=== PATIENT | male | born 1985 | race Caucasian/White ===

== ENCOUNTER → 2017-11-16 16:01 | Outpatient (CLI) | payer OTHER, SELFPAY ==
[2017-11-16 17:21] LABS: BUN Creatinine Ratio 16.4 (6-22); Blood Urea Nitrogen 18 mg/dL (9-20); Calcium 10.1 mg/dL (8.4-10.2); Carbon Dioxide 31 mmol/L (22-32); Chloride 99 mmol/L (98-107); Estimated Glomerular Filt Rate > 60.0 mL/min (>60); Glucose 87 mg/dL (70-100); HEMOLYSIS < 15 (0-50); Potassium 4.8 mmol/L (3.4-5.1); Sodium 141 mmol/L (137-145)
== END ==
PROVIDERS: PCP General Practice; Visit Provider Urology
DX: N13.5 Crossing vessel and stricture of ureter without hydronephrosis (principal)
CPT/HCPCS: 36415; 80048

== ENCOUNTER → 2018-09-21 14:25 | Outpatient (CLI) | payer OTHER, SELFPAY ==
--- NOTE | 2018-09-21 | DI.MRI.S_ITS ---
PROCEDURE: MR SHOULDER LT WO CON INDICATIONS: Left shoulder pain. Chronic dislocations TECHNIQUE: Noncontrast oblique coronal T2 fast spin echo with fat saturation, oblique sagittal T1 spin echo and T2 fast spin echo with fat saturation, axial T1 spin echo and T2 fast spin echo with fat saturation through the shoulder. COMPARISON: None. FINDINGS: Image quality: Excellent. Rotator cuff: The supraspinatus, infraspinatus, and subscapularis tendons appear intact throughout. Sagittal images demonstrate no muscle atrophy. Bones and bursae: No bone marrow contusions or fractures. Mild reactive change noted in the subchondral marrow of the humeral head deep to the insertion of the infraspinous tendon. No acromioclavicular joint degeneration. The acromion demonstrates conventional anatomy, without an os acromiale. No pathologic subacromial-subdeltoid or subcoracoid bursal fluid is present. Capsule and soft tissues: In the absence of intra-articular contrast, the labrum and glenohumeral ligaments appear intact. The long head of the biceps tendon demonstrates normal location and morphology. The rotator interval appears normal, without fibrosis. The coracohumeral ligament is normal in thickness. IMPRESSION: No evidence of internal arrangement. Dictated by: Tatyana Caldwell MD, PhD on 09/21/2018 at 22:03 Approved by: Tatyana Caldwell MD, PhD on 09/23/2018 at 9:09
== END ==
DX: M25.512 Pain in left shoulder (principal); M24.412 Recurrent dislocation, left shoulder
CPT/HCPCS: 73221

== ENCOUNTER → 2019-07-23 14:37 | Outpatient (CLI) | payer OTHER, SELFPAY ==
--- NOTE | 2019-07-23 | DI.US.S_ITS ---
PROCEDURE: US ABDOMEN LIMITED INDICATIONS: RIGHT UPPER QUADRANT PAIN TECHNIQUE: Real-time focused scanning was performed of the abdomen, with image documentation. COMPARISON: None. FINDINGS: Limited study requested, the liver appears normal both in size and echotexture. The gallbladder is relatively contracted, and the gallbladder wall is not abnormally thickened when this is taken into account. No biliary distention is seen. No inflammatory free fluid is found. No source of current pain is identified. IMPRESSION: Targeted scanning to the right upper quadrant, source of current pain in this area is not found. Dictated by: Yoni Hahn M.D. on 07/23/2019 at 15:58 Approved by: Yoni Hahn M.D. on 07/23/2019 at 15:59
[2019-07-23 16:58] LABS: Alanine Aminotransferase 26 IU/L (<50); Albumin 4.7 g/dL (3.5-5.0); Albumin Globulin Ratio 1.5 (1.0-2.8); Alkaline Phosphatase 78 U/L (38-126); Aspartate Aminotransferase 32 IU/L (17-59); BUN Creatinine Ratio 14.4 (6-22); Bilirubin Total 0.3 mg/dL (0.2-1.3); Blood Urea Nitrogen 18 mg/dL (9-20); Calcium 9.8 mg/dL (8.4-10.2); Carbon Dioxide 29 mmol/L (22-32); Chloride 104 mmol/L (98-107); Estimated Glomerular Filt Rate > 60.0 mL/min (>60); Globulin 3.1 g/dL (1.7-4.1); Glucose 91 mg/dL (70-100); HEMOLYSIS < 15 (0-50); Potassium 4.2 mmol/L (3.4-5.1); Sodium 140 mmol/L (137-145); Total Protein 7.8 g/dL (6.3-8.2)
== END ==
PROVIDERS: Referring Provider Physician Assistant; Visit Provider Physician Assistant
DX: R10.11 Right upper quadrant pain (principal)
CPT/HCPCS: 36415; 76705; 80053

== ENCOUNTER → 2019-08-04 08:25 | Outpatient (CLI) | payer OTHER, SELFPAY ==
--- NOTE | 2019-08-04 | DI.NM.S_ITS ---
PROCEDURE: NM HIDA WITH CCK PHARMACEUTICAL: 5.5 mCi Tc-99m mebrofenin IV; 1.4 mcg CCK IV. INDICATIONS: Right upper quadrant pain. TECHNIQUE: Following intravenous administration of Tc-99m mebrofenin, sequential anterior abdominal images were obtained. To evaluate the contractile response of the gallbladder in response to Cholecystokinin (CCK), sincalide (0.02 ?g/kg) was administered by slow intravenous infusion approximately 60 minutes after the administration of the radiopharmaceutical. Sequential imaging was continued for 30 minutes after the start of CCK infusion. Gallbladder ejection fraction was calculated. COMPARISON: [facility], ABDOMEN LIMITED, 07/23/2019, 14:56. FINDINGS: Biliary scan: There is normal tracer uptake and excretion by the liver. There is normal visualization of the intrahepatic ducts, common bile duct, and gallbladder. There is normal tracer transit into the duodenum. CCK stimulation: There is normal contractile response of the gallbladder to CCK infusion. The calculated gallbladder ejection fraction is 49%; normal values are above 35%. It has been shown that any patient abdominal pain after CCK administration is related to the rate of CCK injection, rather than to any underlying gallbladder disease (Clinical Nuclear Medicine 2012; 37: 63-70. Journal of Nuclear Medicine 2014; 55: 1-9). IMPRESSION: 1. Normal filling of gallbladder. No evidence for acute cholecystitis. 2. Normal contractile response of gallbladder to CCK stimulation. Dictated by: Shayna Bowman M.D. on 08/04/2019 at 13:00 Approved by: Shayna Bowman M.D. on 08/04/2019 at 13:02
== END ==
PROVIDERS: Referring Provider Physician Assistant; Visit Provider Physician Assistant
DX: R10.11 Right upper quadrant pain (principal)
CPT/HCPCS: 78227; A9537; J2805

== ENCOUNTER → 2019-08-20 13:34 | Outpatient (CLI) | payer OTHER, SELFPAY ==
--- NOTE | 2019-08-20 13:37 | DI.RAD.S_ITS ---
PROCEDURE: XR THORACIC SPINE 3V INDICATIONS: flank pain after nephrectomy TECHNIQUE: 3 views of the thoracic spine were acquired. COMPARISON: [facility], CT, IVP (ABD & PEL WWO CONTRAST), 06/11/2017, 10:46. [facility], CT, KIDNEY/ URETER/BLADDER, 05/27/2017, 14:19. FINDINGS: Bones: No fractures or dislocations. No suspicious bony lesions. 12 pairs of ribs are noted, and appear intact where visualized. Soft tissues: No paravertebral stripe thickening. IMPRESSION: Normal thoracic spine, source of flank pain is not identified. Dictated by: Yoni Hahn M.D. on 08/20/2019 at 15:09 Approved by: Yoni Hahn M.D. on 08/20/2019 at 15:10
== END ==
PROVIDERS: Referring Provider Physical Medicine & Rehabilitation; Visit Provider Physical Medicine & Rehabilitation
DX: R10.9 Unspecified abdominal pain (principal); Z90.5 Acquired absence of kidney
CPT/HCPCS: 72072

== ENCOUNTER → 2019-09-12 07:32 | Outpatient (CLI) | payer OTHER, SELFPAY ==
--- NOTE | 2019-09-12 07:33 | DI.MRI.S_ITS ---
PROCEDURE: MR LUMBAR SPINE WO CON INDICATIONS: Right flank pain TECHNIQUE: Noncontrast sagittal T1 spin echo and T2 fast echo, sagittal STIR, axial T1 and T2 fast spin echo through the lumbar spine. In cases with scoliosis, additional coronal T2 fast spin echo may be performed. COMPARISON: Formerly [facility], CT, IVP (ABD & PEL WWO CONTRAST), 06/11/2017, 10:46. Former[facility], CR, XR LUMBAR SPINE MIN 4V, 09/12/2019, 7:07. FINDINGS: Image quality: Excellent. Alignment and Curvature: There is normal bony alignment. Bone Marrow: Marrow is of normal overall signal. No acute vertebral body compression fractures. Spinal Cord: Conus medullaris terminates at the L1-2 disc level. Visualized cord demonstrates normal signal and size. Paraspinous Soft Tissues: No paravertebral masses. Right kidney is absent or atrophied. L1-L2: Normal appearance. L2-L3: Normal appearance. L3-L4: Normal appearance. L4-L5: Normal appearance. L5-S1: Normal appearance. IMPRESSION: 1. Negative examination. 2. No central stenosis. 3. No neural foraminal narrowing 4. No neural compression. Dictated by: Tatyana Caldwell MD, PhD on 09/12/2019 at 8:50 Approved by: Tatyana Caldwell MD, PhD on 09/12/2019 at 8:54
--- NOTE | 2019-09-12 07:33 | DI.RAD.S_ITS ---
PROCEDURE: XR LUMBAR SPINE MIN 4V INDICATIONS: Right flank pain TECHNIQUE: 5 views of the lumbar spine were acquired. COMPARISON: None. FINDINGS: Bones: 5 nonrib-bearing vertebrae are present. There is normal bony alignment. No vertebral body compression fractures. No suspicious bony lesions. Soft tissues: Overlying bowel gas pattern is normal. No suspicious soft tissue calcifications. Oblique images: No pars defects. IMPRESSION: Unremarkable radiographic examination of lumbar spine. Dictated by: Dc Manzanares M.D. on 09/12/2019 at 8:42 Approved by: Dc Manzanares M.D. on 09/12/2019 at 8:43
== END ==
PROVIDERS: Referring Provider Physical Medicine & Rehabilitation; Visit Provider Physical Medicine & Rehabilitation
DX: R10.9 Unspecified abdominal pain (principal); M54.14 Radiculopathy, thoracic region; M99.08 Segmental and somatic dysfunction of rib cage; Z90.5 Acquired absence of kidney
CPT/HCPCS: 72110; 72148

== ENCOUNTER 2019-10-14 11:15 | Outpatient (RCR) | payer OTHER, SELFPAY ==
--- NOTE | 2019-08-21 18:24 | PT.OIE ---
Current Diagnoses Other chronic pain (08/21/19) Visit Care Team Role Provider Type Trinidad Gutierrez MD Attending Provider Non-Staff Primary Care Provider Referring Provider Specialty: Family Practice Address: [address] [place] [address], [id number] Email: Physical Therapy Initial Evaluation PT-OP-A Visit Information Start: 08/21/19 17:37 Freq: Status: Active Protocol: Document 08/21/19 16:45 HH (Rec: 08/21/19 18:21 HH [email or web address]) Out-Patient Physical Therapy Visit Information Visit Information Visit Type Initial Evaluation Visit Start Time 16:45 Visit Stop Time 15:31 Total Visit Minutes 46 Visit Number 04/21 Number of MEAL ATTENDANT Visits 0 Evaluation Information Evaluation Date 08/21/19 PT-OP-B Current Condition Start: 08/21/19 17:37 Freq: Status: Active Protocol: Document 08/21/19 16:45 HH (Rec: 08/21/19 18:21 HH [email or web address]) Current Condition History of Current Condition Onset Date Many years ago Current Complaints flank pain after nephrectomy History of Current Condition Pt presents to clinic with c/o chronic R lower back pain (R upper quadrant) 3-09/16 after nephrectomy 2 years ago. Pt had R globalized upper quadrant pain since many years ago was treated generalized back for awhile then he was found to have kidney failure and received nephrectomy on June 2017. Pt continue to have persistent pain afterwards which mostly located at the base of 12th rib. He described his pain as deep inside. Stress, prolonged physical activities and bending over seem to worsen his pain but not much. pt saw neurologist and was diagnosed with somatic visceral pain and recommended pt to see Dr. Montiel for pain management by needling treatment and Myofascial treatment from [facility] . Pt states he often wear compression belt and that tends to help. Pt also had a gallbladder scan recently with unremarkable findings. Pt works at the [employer] but he is on limited duty due to his recent L shoulder labral surgery who is seeing [employer] PT at the same time. Pt likes to exercise and run in general. Future Testing and Treatments Planned Needling treatment in 09/02 with Treatment Goals Patient/Caregiver Goals 1. To reduce his overall pain level. Personal Factors Other Personal Factors That May Effect Possible somatic visceral Therapy/Recovery reflex after nephrectomy PT-OP-C Subjective Start: 08/21/19 17:37 Freq: Status: Active Protocol: Document 08/21/19 16:45 HH (Rec: 08/21/19 18:21 [email or web address]) OP-PT Subjective Patient Comments Patient Comments My back pain is very constant Patient Questionnaires Oswestry Low Back Index Oswestry Score 38 Oswestry Impairment 20 to 39% Impaired (Score 20- 39) OP-PT Pain Assessment Location Right Upper Back Pain Location Details base of 12 th rib Intensity 5 Scale Used Numeric (1 - 10) Description Aching,Dull Frequency Constant Pain Aggravating Factors Activity,Exercise,Bending, Lifting Pain Alleviating Factors Cold PT-OP-D Balance Start: 08/21/19 17:37 Freq: Status: Active Protocol: Document 08/21/19 16:45 HH (Rec: 08/21/19 18:21 [email or web address]) Balance Tests Other Other Balance Tests Performed excessive trunk shift during SLS PT-OP-F Manual Assessment Start: 08/21/19 17:37 Freq: Status: Active Protocol: Document 08/21/19 16:45 HH (Rec: 08/21/19 18:21 [email or web address]) Manual Assessments Soft Tissue Assessment Soft Tissue Mobility Assessment Significant tenderness to pressure at R QL, base of 12 th rib, R hip flexor PT-OP-K Range of Motion Start: 08/21/19 17:37 Freq: Status: Active Protocol: Document 08/21/19 16:45 HH (Rec: 08/21/19 18:21 [email or web address]) Lumbar Spine Range of Motion Lumbar Spine Active Percentage Testing Position Standing Flexion 30 Extension 90 Rotation Left 80 Rotation Right 80 Lateral Flexion Left 80 Lateral Flexion Right 80 ROM Limitations Soft Tissue Tightness Comments Toe touch test = finger reach midshin, lack of hip flexion. LBP reproduced Pain reproduced with L lateral flexion and R rotation Hip Goniometric Range of Motion Hip Right Active Hip ROM WFL Yes Knee Goniometric Range of Motion Knee Right Knee ROM WFL Yes Left Knee ROM WFL Yes PT-OP-M Strength Start: 08/21/19 17:37 Freq: Status: Active Protocol: Document 08/21/19 16:45 HH (Rec: 08/21/19 18:21 [email or web address]) Trunk Strength Trunk Manual Muscle Testing Comments biering lisa test = >60s abdominal flexion test (curl position) =14 s Hip Strength Hip Manual Muscle Testing Right Flexion (L2) 5 Normal Extension (S1) 5 Normal Abduction 5 Normal Adduction 5 Normal External Rotation 5 Normal Internal Rotation 5 Normal Left Flexion (L2) 5 Normal Extension (S1) 5 Normal Abduction 5 Normal Adduction 5 Normal External Rotation 5 Normal Internal Rotation 5 Normal Knee Strength Knee Manual Muscle Testing Right Flexion (S2) 5 Normal Extension (L3) 5 Normal Left Flexion (S2) 5 Normal Extension (L3) 5 Normal PT-OP-T Assessment and Plan Start: 08/21/19 17:37 Freq: Status: Active Protocol: Document 08/21/19 16:45 (Rec: 08/21/19 18:21 [email or web address]) Physical Therapy Assessment Rehab Potential Rehabilitation Potential Good Evaluation Complexity Number of Personal Factors/Comorbidities 1-2 Number of Body Systems Impaired 1-2 Clinical Presentation at Evaluation Stable Impairments Impairments Activity Tolerance,Balance, Functional Activities, Functional Mobility,Pain,ROM, Soft Tissue Mobility,Strength Goals Owestry LbP Impairment scores 38 Senior Living Goal (LTG) Pt will be able to reach <20 for Oswestry to improve his overall quality of life LTG Duration 8 weeks pain Impairment chronic pain Short Term Goal (STG) Pt will have no more than 4/10 of right back pain at the end of the day STG Duration 4 weeks Senior Living Goal (LTG) Pt will have no more than 2/10 of right back pain at the end of the day to improve his quality of life LTG Duration 8 weeks toe touch Impairment Pt demonstrates poor posterior chain mobility Short Term Goal (STG) Pt will be able to ankle touch during standing flexion test STG Duration 4 weeks Senior Living Goal (LTG) Pt will be able to floor touch during standing flexion test to improve posterior chain mobility to reduce low back pressure for bend over activities. LTG Duration 8 weeks core stability Impairment pt demonstrates poor core stability Short Term Goal (STG) Pt will reach >25 s for abdominal flexion endurance test , 70 s for biering lisa test STG Duration 4 weeks Call Worker Goal (LTG) Pt will reach >40 s for abdominal flexion endurance test , 90 s for biering lisa to improve his trunk stability for any physical activity LTG Duration 8 weeks Assessment Summary Assessment This is a moderate complexity evaluation for this 34 yo male with chronic back pain d/t kidney failure and nephrectomy (2018). Upon assessment, pt presents somatic visceral reflex pain at R upper quadrant, along with significant tenderness to pressure at the base of R 12th rib, and r hip flexor. Pt also demonstrates significant limited posterior chain mobility who seems to compromise with excessive lumbar flexion for bend over activities. His core stability is also poor whose abdominal flexion test =14 s and Biering lisa = 60s with pain noted. Pt will benefit from skilled therapy to address his hip mobility and trunk stability to reduce excessive mechanical stress on lumbar musculature, in order to have better quality of life. Physical Therapy Plan Frequency and Duration Frequency of Treatment 2x/Week Duration of Treatment 8 weeks Plan of Care Start Date 08/21/19 Plan of Care End Date 10/20/19 Therapeutic Interventions Therapeutic Interventions Balance Training,Gait Training ,Home Exercise Program,Joint Mobilizations,Manual Therapy, Neuromuscular Re-education, Patient/Caregiver Education, Self-Care/Home Management,Soft Tissue Mobilization, Therapeutic Activities, Therapeutic Exercises Modalities Cold Pack/Ice Massage,Infrared Therapy,Ultrasound Next Visit Focus/Plan Next Note Type Treatment Note Next Visit Plan myofascial release on abdominal and trunk extensor musculature hip posterior chain mobility training ( hamstrings) low back stabiltiy and endurance ex (flexion/ extension)
--- NOTE | 2019-08-27 13:25 | PT.OTN ---
Current Diagnoses Other chronic pain (08/27/19) Physical Therapy Treatment Note PT-OP-A Visit Information Start: 08/21/19 17:37 Freq: Status: Active Protocol: Document 08/27/19 13:10 [facility] (Rec: 08/27/19 13:20 [facility] [email or web address]) Out-Patient Physical Therapy Visit Information Visit Information Visit Type Treatment Note Visit Start Time 08:15 Visit Stop Time 09:00 Total Visit Minutes 45 Visit Number 2/13 Number of PREPARED FOODS TEAM LEADER Visits 0 Evaluation Information Evaluation Date 08/21/19 PT-OP-B Current Condition Start: 08/21/19 17:37 Freq: Status: Active Protocol: Document 08/21/19 16:45 HH (Rec: 08/21/19 18:21 HH [email or web address]) Current Condition History of Current Condition Onset Date Many years ago Current Complaints flank pain after nephrectomy History of Current Condition Pt presents to clinic with c/o chronic R lower back pain (R upper quadrant) 3-09/16 after nephrectomy 2 years ago. Pt had R globalized upper quadrant pain since many years ago was treated generalized back for awhile then he was found to have kidney failure and received nephrectomy on June 2017. Pt continue to have persistent pain afterwards which mostly located at the base of 12th rib. He described his pain as deep inside. Stress, prolonged physical activities and bending over seem to worsen his pain but not much. pt saw neurologist and was diagnosed with somatic visceral pain and recommended pt to see Dr. Montiel for pain management by needling treatment and Myofascial treatment from [facility] . Pt states he often wear compression belt and that tends to help. Pt also had a gallbladder scan recently with unremarkable findings. Pt works at the [employer] but he is on limited duty due to his recent L shoulder labral surgery who is seeing [employer] PT at the same time. Pt likes to exercise and run in general. Future Testing and Treatments Planned Needling treatment in 09/02 with Treatment Goals Patient/Caregiver Goals 1. To reduce his overall pain level. Personal Factors Other Personal Factors That May Effect Possible somatic visceral Therapy/Recovery reflex after nephrectomy PT-OP-C Subjective Start: 08/21/19 17:37 Freq: Status: Active Protocol: Document 08/27/19 13:10 [facility] (Rec: 08/27/19 13:20 [facility] [email or web address]) OP-PT Subjective Patient Comments Patient Comments pt reports he has been working on his [employer], his back pain remains constant PT-OP-D Balance Start: 08/21/19 17:37 Freq: Status: Active Protocol: Document 08/21/19 16:45 HH (Rec: 08/21/19 18:21 [email or web address]) Balance Tests Other Other Balance Tests Performed excessive trunk shift during SLS PT-OP-F Manual Assessment Start: 08/21/19 17:37 Freq: Status: Active Protocol: Document 08/21/19 16:45 HH (Rec: 08/21/19 18:21 [email or web address]) Manual Assessments Soft Tissue Assessment Soft Tissue Mobility Assessment Significant tenderness to pressure at R QL, base of 12 th rib, R hip flexor PT-OP-K Range of Motion Start: 08/21/19 17:37 Freq: Status: Active Protocol: Document 08/21/19 16:45 HH (Rec: 08/21/19 18:21 [email or web address]) Lumbar Spine Range of Motion Lumbar Spine Active Percentage Testing Position Standing Flexion 30 Extension 90 Rotation Left 80 Rotation Right 80 Lateral Flexion Left 80 Lateral Flexion Right 80 ROM Limitations Soft Tissue Tightness Comments Toe touch test = finger reach midshin, lack of hip flexion. LBP reproduced Pain reproduced with L lateral flexion and R rotation Hip Goniometric Range of Motion Hip Right Active Hip ROM WFL Yes Knee Goniometric Range of Motion Knee Right Knee ROM WFL Yes Left Knee ROM WFL Yes PT-OP-M Strength Start: 08/21/19 17:37 Freq: Status: Active Protocol: Document 08/21/19 16:45 HH (Rec: 08/21/19 18:21 [email or web address]) Trunk Strength Trunk Manual Muscle Testing Comments van lisa test = >60s abdominal flexion test (curl position) =14 s Hip Strength Hip Manual Muscle Testing Right Flexion (L2) 5 Normal Extension (S1) 5 Normal Abduction 5 Normal Adduction 5 Normal External Rotation 5 Normal Internal Rotation 5 Normal Left Flexion (L2) 5 Normal Extension (S1) 5 Normal Abduction 5 Normal Adduction 5 Normal External Rotation 5 Normal Internal Rotation 5 Normal Knee Strength Knee Manual Muscle Testing Right Flexion (S2) 5 Normal Extension (L3) 5 Normal Left Flexion (S2) 5 Normal Extension (L3) 5 Normal PT-OP-Q Treatments Start: 08/21/19 17:37 Freq: Status: Active Protocol: Document 08/27/19 13:20 [facility] (Rec: 08/27/19 13:25 [facility] [email or web address]) Therapeutic Exercises Supine Exercises 2 Supine Exercise Name supine foam roll stretch Reps/Minutes 1-2 minutes Comments started with 1/2 foam roll 1 Supine Exercise Name diaphragmatic breathing Reps/Minutes x 5 reps Comments with tactile cues to expand the rib cage Manual Therapy Treatment Soft Tissue Mobilization 2 Body Location STM lumbar parapsinals on the right Body Position prone over body pillow 1 Body Location MFR over the right side of the abdominal wall, kidney region on the right Body Position Supine Comments worked on breathing with mfr PT-OP-T Assessment and Plan Start: 08/21/19 17:37 Freq: Status: Active Protocol: Document 08/27/19 13:10 [facility] (Rec: 08/27/19 13:20 [facility] [email or web address]) Physical Therapy Assessment Assessment Summary Assessment pt tolerated MFR well over the abdominal region, riib cage on the right and kidney. I did do some STM over the lumbar paraspinals. We reviewed diaphragmatic breathing today and pt was given a hand out for home on breathing and given info on the breath shellie. I also started him on the foam roll as he tends to arch his low back lifting his rib cage in the supine position. He tolerated the foam roll well. Pt to ice at the end of treatment today Physical Therapy Plan Frequency and Duration Frequency of Treatment 2x/Week Duration of Treatment 8 weeks Plan of Care Start Date 08/21/19 Plan of Care End Date 10/20/19 Therapeutic Interventions Therapeutic Interventions Balance Training,Gait Training ,Home Exercise Program,Joint Mobilizations,Manual Therapy, Neuromuscular Re-education, Patient/Caregiver Education, Self-Care/Home Management,Soft Tissue Mobilization, Therapeutic Activities, Therapeutic Exercises Modalities Cold Pack/Ice Massage,Infrared Therapy,Ultrasound Next Visit Focus/Plan Next Note Type Treatment Note Next Visit Plan myofascial release on abdominal and trunk extensor musculature hip posterior chain mobility training ( hamstrings) low back stabiltiy and endurance ex (flexion/ extension)
--- NOTE | 2019-09-03 17:00 | PT.OTN ---
Current Diagnoses Other chronic pain (09/08/19) Physical Therapy Treatment Note PT-OP-A Visit Information Start: 08/21/19 17:37 Freq: Status: Active Protocol: Document 09/03/19 16:32 [facility] (Rec: 09/03/19 16:33 [facility] [email or web address]) Out-Patient Physical Therapy Visit Information Visit Information Visit Type Treatment Note Visit Start Time 13:45 Visit Stop Time 14:30 Total Visit Minutes 45 Visit Number 3/13 Number of TARIFF SUPERVISOR Visits 0 PT-OP-B Current Condition Start: 08/21/19 17:37 Freq: Status: Active Protocol: Document 08/21/19 16:45 HH (Rec: 08/21/19 18:21 HH [email or web address]) Current Condition History of Current Condition Onset Date Many years ago Current Complaints flank pain after nephrectomy History of Current Condition Pt presents to clinic with c/o chronic R lower back pain (R upper quadrant) 3-09/16 after nephrectomy 2 years ago. Pt had R globalized upper quadrant pain since many years ago was treated generalized back for awhile then he was found to have kidney failure and received nephrectomy on June 2017. Pt continue to have persistent pain afterwards which mostly located at the base of 12th rib. He described his pain as deep inside. Stress, prolonged physical activities and bending over seem to worsen his pain but not much. pt saw neurologist and was diagnosed with somatic visceral pain and recommended pt to see Dr. Montiel for pain management by needling treatment and Myofascial treatment from [facility] . Pt states he often wear compression belt and that tends to help. Pt also had a gallbladder scan recently with unremarkable findings. Pt works at the [employer] but he is on limited duty due to his recent L shoulder labral surgery who is seeing [employer] PT at the same time. Pt likes to exercise and run in general. Future Testing and Treatments Planned Needling treatment in 09/02 with Treatment Goals Patient/Caregiver Goals 1. To reduce his overall pain level. Personal Factors Other Personal Factors That May Effect Possible somatic visceral Therapy/Recovery reflex after nephrectomy PT-OP-C Subjective Start: 08/21/19 17:37 Freq: Status: Active Protocol: Document 09/03/19 16:32 [facility] (Rec: 09/08/19 13:50 [facility] [id number]) OP-PT Subjective Patient Comments Patient Comments pt is takng prednispone and is starting his second dose this week. Taking Lidocaine spray for his back. Patient Reported Progress Same PT-OP-D Balance Start: 08/21/19 17:37 Freq: Status: Active Protocol: Document 08/21/19 16:45 HH (Rec: 08/21/19 18:21 [email or web address]) Balance Tests Other Other Balance Tests Performed excessive trunk shift during SLS PT-OP-F Manual Assessment Start: 08/21/19 17:37 Freq: Status: Active Protocol: Document 08/21/19 16:45 HH (Rec: 08/21/19 18:21 [email or web address]) Manual Assessments Soft Tissue Assessment Soft Tissue Mobility Assessment Significant tenderness to pressure at R QL, base of 12 th rib, R hip flexor PT-OP-K Range of Motion Start: 08/21/19 17:37 Freq: Status: Active Protocol: Document 08/21/19 16:45 HH (Rec: 08/21/19 18:21 [email or web address]) Lumbar Spine Range of Motion Lumbar Spine Active Percentage Testing Position Standing Flexion 30 Extension 90 Rotation Left 80 Rotation Right 80 Lateral Flexion Left 80 Lateral Flexion Right 80 ROM Limitations Soft Tissue Tightness Comments Toe touch test = finger reach midshin, lack of hip flexion. LBP reproduced Pain reproduced with L lateral flexion and R rotation Hip Goniometric Range of Motion Hip Right Active Hip ROM WFL Yes Knee Goniometric Range of Motion Knee Right Knee ROM WFL Yes Left Knee ROM WFL Yes PT-OP-M Strength Start: 08/21/19 17:37 Freq: Status: Active Protocol: Document 08/21/19 16:45 HH (Rec: 08/21/19 18:21 [email or web address]) Trunk Strength Trunk Manual Muscle Testing Comments van lisa test = >60s abdominal flexion test (curl position) =14 s Hip Strength Hip Manual Muscle Testing Right Flexion (L2) 5 Normal Extension (S1) 5 Normal Abduction 5 Normal Adduction 5 Normal External Rotation 5 Normal Internal Rotation 5 Normal Left Flexion (L2) 5 Normal Extension (S1) 5 Normal Abduction 5 Normal Adduction 5 Normal External Rotation 5 Normal Internal Rotation 5 Normal Knee Strength Knee Manual Muscle Testing Right Flexion (S2) 5 Normal Extension (L3) 5 Normal Left Flexion (S2) 5 Normal Extension (L3) 5 Normal PT-OP-Q Treatments Start: 08/21/19 17:37 Freq: Status: Active Protocol: Document 09/03/19 12:51 [facility] (Rec: 09/08/19 12:56 [facility] [email or web address]) Therapeutic Exercises Supine Exercises 2 Supine Exercise Name supine foam roll stretch Reps/Minutes 1-2 minutes Comments started with 1/2 foam roll 1 Supine Exercise Name diaphragmatic breathing Reps/Minutes x 5 reps Comments with tactile cues to expand the rib cage Standing Exercises 1 Standing Exercise Name standing side bend stretching Reps/Minutes 2 reps each side hold 30 seconds plus Other Exercises 1 Other Exercise Name nancy pose Comments hold 1-2 min Manual Therapy Treatment Soft Tissue Mobilization 2 Body Location STM lumbar parapsinals on the right Body Position prone over body pillow 1 Body Location MFR over the right side of the abdominal wall, kidney region on the right Body Position Supine Comments worked on breathing with mfr PT-OP-T Assessment and Plan Start: 08/21/19 17:37 Freq: Status: Active Protocol: Document 09/03/19 12:51 [facility] (Rec: 09/08/19 12:56 [facility] [email or web address]) Physical Therapy Assessment Assessment Summary Assessment I began added in lateral stretches and Shan tolerated this well. Working on diaphragmatic breathing to open up the rib cage and intercostals Physical Therapy Plan Frequency and Duration Frequency of Treatment 2x/Week Duration of Treatment 8 weeks Plan of Care Start Date 08/21/19 Plan of Care End Date 10/20/19 Next Visit Focus/Plan Next Note Type Treatment Note Next Visit Plan myofascial release on abdominal and trunk extensor musculature hip posterior chain mobility training ( hamstrings) low back stabiltiy and endurance ex (flexion/ extension)
--- NOTE | 2019-09-03 17:00 | PT.OTN ---
Current Diagnoses Other chronic pain (09/08/19) Physical Therapy Treatment Note PT-OP-A Visit Information Start: 08/21/19 17:37 Freq: Status: Active Protocol: Document 09/03/19 16:32 [facility] (Rec: 09/03/19 16:33 [facility] [email or web address]) Out-Patient Physical Therapy Visit Information Visit Information Visit Type Treatment Note Visit Start Time 13:45 Visit Stop Time 14:30 Total Visit Minutes 45 Visit Number 3/13 Number of TECHNOLOGY PROJECT MANAGER Visits 0 PT-OP-B Current Condition Start: 08/21/19 17:37 Freq: Status: Active Protocol: Document 08/21/19 16:45 HH (Rec: 08/21/19 18:21 HH [email or web address]) Current Condition History of Current Condition Onset Date Many years ago Current Complaints flank pain after nephrectomy History of Current Condition Pt presents to clinic with c/o chronic R lower back pain (R upper quadrant) 3-09/16 after nephrectomy 2 years ago. Pt had R globalized upper quadrant pain since many years ago was treated generalized back for awhile then he was found to have kidney failure and received nephrectomy on June 2017. Pt continue to have persistent pain afterwards which mostly located at the base of 12th rib. He described his pain as deep inside. Stress, prolonged physical activities and bending over seem to worsen his pain but not much. pt saw neurologist and was diagnosed with somatic visceral pain and recommended pt to see Dr. Montiel for pain management by needling treatment and Myofascial treatment from [facility] . Pt states he often wear compression belt and that tends to help. Pt also had a gallbladder scan recently with unremarkable findings. Pt works at the [employer] but he is on limited duty due to his recent L shoulder labral surgery who is seeing [employer] PT at the same time. Pt likes to exercise and run in general. Future Testing and Treatments Planned Needling treatment in 09/02 with Treatment Goals Patient/Caregiver Goals 1. To reduce his overall pain level. Personal Factors Other Personal Factors That May Effect Possible somatic visceral Therapy/Recovery reflex after nephrectomy PT-OP-C Subjective Start: 08/21/19 17:37 Freq: Status: Active Protocol: Document 09/03/19 16:32 [facility] (Rec: 09/08/19 13:50 [facility] [id number]) OP-PT Subjective Patient Comments Patient Comments pt is takng prednispone and is starting his second dose this week. Taking Lidocaine spray for his back. Patient Reported Progress Same PT-OP-D Balance Start: 08/21/19 17:37 Freq: Status: Active Protocol: Document 08/21/19 16:45 HH (Rec: 08/21/19 18:21 [email or web address]) Balance Tests Other Other Balance Tests Performed excessive trunk shift during SLS PT-OP-F Manual Assessment Start: 08/21/19 17:37 Freq: Status: Active Protocol: Document 08/21/19 16:45 HH (Rec: 08/21/19 18:21 [email or web address]) Manual Assessments Soft Tissue Assessment Soft Tissue Mobility Assessment Significant tenderness to pressure at R QL, base of 12 th rib, R hip flexor PT-OP-K Range of Motion Start: 08/21/19 17:37 Freq: Status: Active Protocol: Document 08/21/19 16:45 HH (Rec: 08/21/19 18:21 [email or web address]) Lumbar Spine Range of Motion Lumbar Spine Active Percentage Testing Position Standing Flexion 30 Extension 90 Rotation Left 80 Rotation Right 80 Lateral Flexion Left 80 Lateral Flexion Right 80 ROM Limitations Soft Tissue Tightness Comments Toe touch test = finger reach midshin, lack of hip flexion. LBP reproduced Pain reproduced with L lateral flexion and R rotation Hip Goniometric Range of Motion Hip Right Active Hip ROM WFL Yes Knee Goniometric Range of Motion Knee Right Knee ROM WFL Yes Left Knee ROM WFL Yes PT-OP-M Strength Start: 08/21/19 17:37 Freq: Status: Active Protocol: Document 08/21/19 16:45 HH (Rec: 08/21/19 18:21 [email or web address]) Trunk Strength Trunk Manual Muscle Testing Comments van lisa test = >60s abdominal flexion test (curl position) =14 s Hip Strength Hip Manual Muscle Testing Right Flexion (L2) 5 Normal Extension (S1) 5 Normal Abduction 5 Normal Adduction 5 Normal External Rotation 5 Normal Internal Rotation 5 Normal Left Flexion (L2) 5 Normal Extension (S1) 5 Normal Abduction 5 Normal Adduction 5 Normal External Rotation 5 Normal Internal Rotation 5 Normal Knee Strength Knee Manual Muscle Testing Right Flexion (S2) 5 Normal Extension (L3) 5 Normal Left Flexion (S2) 5 Normal Extension (L3) 5 Normal PT-OP-Q Treatments Start: 08/21/19 17:37 Freq: Status: Active Protocol: Document 09/03/19 12:51 [facility] (Rec: 09/08/19 12:56 [facility] [email or web address]) Therapeutic Exercises Supine Exercises 2 Supine Exercise Name supine foam roll stretch Reps/Minutes 1-2 minutes Comments started with 1/2 foam roll 1 Supine Exercise Name diaphragmatic breathing Reps/Minutes x 5 reps Comments with tactile cues to expand the rib cage Standing Exercises 1 Standing Exercise Name standing side bend stretching Reps/Minutes 2 reps each side hold 30 seconds plus Other Exercises 1 Other Exercise Name nancy pose Comments hold 1-2 min Manual Therapy Treatment Soft Tissue Mobilization 2 Body Location STM lumbar parapsinals on the right Body Position prone over body pillow 1 Body Location MFR over the right side of the abdominal wall, kidney region on the right Body Position Supine Comments worked on breathing with mfr PT-OP-T Assessment and Plan Start: 08/21/19 17:37 Freq: Status: Active Protocol: Document 09/03/19 12:51 [facility] (Rec: 09/08/19 12:56 [facility] [email or web address]) Physical Therapy Assessment Assessment Summary Assessment I began added in lateral stretches and Shan tolerated this well. Working on diaphragmatic breathing to open up the rib cage and intercostals Physical Therapy Plan Frequency and Duration Frequency of Treatment 2x/Week Duration of Treatment 8 weeks Plan of Care Start Date 08/21/19 Plan of Care End Date 10/20/19 Next Visit Focus/Plan Next Note Type Treatment Note Next Visit Plan myofascial release on abdominal and trunk extensor musculature hip posterior chain mobility training ( hamstrings) low back stabiltiy and endurance ex (flexion/ extension)
--- NOTE | 2019-09-08 12:57 | PT.OTN ---
Current Diagnoses Other chronic pain (09/03/19) Physical Therapy Treatment Note PT-OP-A Visit Information Start: 08/21/19 17:37 Freq: Status: Active Protocol: Document 09/03/19 16:32 [facility] (Rec: 09/03/19 16:33 [facility] [email or web address]) Out-Patient Physical Therapy Visit Information Visit Information Visit Type Treatment Note Visit Start Time 13:45 Visit Stop Time 14:30 Total Visit Minutes 45 Visit Number 3/13 Number of GOLF COURSE SUPERINTENDENT Visits 0 PT-OP-B Current Condition Start: 08/21/19 17:37 Freq: Status: Active Protocol: Document 08/21/19 16:45 HH (Rec: 08/21/19 18:21 HH [email or web address]) Current Condition History of Current Condition Onset Date Many years ago Current Complaints flank pain after nephrectomy History of Current Condition Pt presents to clinic with c/o chronic R lower back pain (R upper quadrant) 3-09/16 after nephrectomy 2 years ago. Pt had R globalized upper quadrant pain since many years ago was treated generalized back for awhile then he was found to have kidney failure and received nephrectomy on June 2017. Pt continue to have persistent pain afterwards which mostly located at the base of 12th rib. He described his pain as deep inside. Stress, prolonged physical activities and bending over seem to worsen his pain but not much. pt saw neurologist and was diagnosed with somatic visceral pain and recommended pt to see Dr. Montiel for pain management by needling treatment and Myofascial treatment from [facility] . Pt states he often wear compression belt and that tends to help. Pt also had a gallbladder scan recently with unremarkable findings. Pt works at the [employer] [place] but he is on limited duty due to his recent L shoulder labral surgery who is seeing [employer] [facility] PT at the same time. Pt likes to exercise and run in general. Future Testing and Treatments Planned Needling treatment in 09/02 with Treatment Goals Patient/Caregiver Goals 1. To reduce his overall pain level. Personal Factors Other Personal Factors That May Effect Possible somatic visceral Therapy/Recovery reflex after nephrectomy PT-OP-C Subjective Start: 08/21/19 17:37 Freq: Status: Active Protocol: Document 09/03/19 12:51 [facility] (Rec: 09/08/19 12:56 [facility] [email or web address]) OP-PT Subjective Patient Comments Patient Comments Pt reports he saw Dr. Montiel. He is encouraged. He was sore following last visit but feels like the manual work helped PT-OP-D Balance Start: 08/21/19 17:37 Freq: Status: Active Protocol: Document 08/21/19 16:45 HH (Rec: 08/21/19 18:21 [email or web address]) Balance Tests Other Other Balance Tests Performed excessive trunk shift during SLS PT-OP-F Manual Assessment Start: 08/21/19 17:37 Freq: Status: Active Protocol: Document 08/21/19 16:45 HH (Rec: 08/21/19 18:21 [email or web address]) Manual Assessments Soft Tissue Assessment Soft Tissue Mobility Assessment Significant tenderness to pressure at R QL, base of 12 th rib, R hip flexor PT-OP-K Range of Motion Start: 08/21/19 17:37 Freq: Status: Active Protocol: Document 08/21/19 16:45 HH (Rec: 08/21/19 18:21 [email or web address]) Lumbar Spine Range of Motion Lumbar Spine Active Percentage Testing Position Standing Flexion 30 Extension 90 Rotation Left 80 Rotation Right 80 Lateral Flexion Left 80 Lateral Flexion Right 80 ROM Limitations Soft Tissue Tightness Comments Toe touch test = finger reach midshin, lack of hip flexion. LBP reproduced Pain reproduced with L lateral flexion and R rotation Hip Goniometric Range of Motion Hip Right Active Hip ROM WFL Yes Knee Goniometric Range of Motion Knee Right Knee ROM WFL Yes Left Knee ROM WFL Yes PT-OP-M Strength Start: 08/21/19 17:37 Freq: Status: Active Protocol: Document 08/21/19 16:45 HH (Rec: 08/21/19 18:21 [email or web address]) Trunk Strength Trunk Manual Muscle Testing Comments van gonzalez test = >60s abdominal flexion test (curl position) =14 s Hip Strength Hip Manual Muscle Testing Right Flexion (L2) 5 Normal Extension (S1) 5 Normal Abduction 5 Normal Adduction 5 Normal External Rotation 5 Normal Internal Rotation 5 Normal Left Flexion (L2) 5 Normal Extension (S1) 5 Normal Abduction 5 Normal Adduction 5 Normal External Rotation 5 Normal Internal Rotation 5 Normal Knee Strength Knee Manual Muscle Testing Right Flexion (S2) 5 Normal Extension (L3) 5 Normal Left Flexion (S2) 5 Normal Extension (L3) 5 Normal PT-OP-Q Treatments Start: 08/21/19 17:37 Freq: Status: Active Protocol: Document 09/03/19 12:51 [facility] (Rec: 09/08/19 12:56 [facility] [email or web address]) Therapeutic Exercises Supine Exercises 2 Supine Exercise Name supine foam roll stretch Reps/Minutes 1-2 minutes Comments started with 1/2 foam roll 1 Supine Exercise Name diaphragmatic breathing Reps/Minutes x 5 reps Comments with tactile cues to expand the rib cage Standing Exercises 1 Standing Exercise Name standing side bend stretching Reps/Minutes 2 reps each side hold 30 seconds plus Other Exercises 1 Other Exercise Name nancy pose Comments hold 1-2 min Manual Therapy Treatment Soft Tissue Mobilization 2 Body Location STM lumbar parapsinals on the right Body Position prone over body pillow 1 Body Location MFR over the right side of the abdominal wall, kidney region on the right Body Position Supine Comments worked on breathing with mfr PT-OP-T Assessment and Plan Start: 08/21/19 17:37 Freq: Status: Active Protocol: Document 09/03/19 12:51 [facility] (Rec: 09/08/19 12:56 [facility] [email or web address]) Physical Therapy Assessment Assessment Summary Assessment I began added in lateral stretches and Shan tolerated this well. Working on diaphragmatic breathing to open up the rib cage and intercostals Physical Therapy Plan Frequency and Duration Frequency of Treatment 2x/Week Duration of Treatment 8 weeks Plan of Care Start Date 08/21/19 Plan of Care End Date 10/20/19 Next Visit Focus/Plan Next Note Type Treatment Note Next Visit Plan myofascial release on abdominal and trunk extensor musculature hip posterior chain mobility training ( hamstrings) low back stabiltiy and endurance ex (flexion/ extension)
--- NOTE | 2019-09-08 18:48 | PT.OTN ---
Current Diagnoses Other chronic pain (09/08/19) Physical Therapy Treatment Note PT-OP-A Visit Information Start: 08/21/19 17:37 Freq: Status: Active Protocol: Document 09/08/19 18:44 [facility] (Rec: 09/08/19 18:48 [facility] [email or web address]) Out-Patient Physical Therapy Visit Information Visit Information Visit Type Treatment Note Visit Start Time 13:45 Visit Stop Time 14:30 Total Visit Minutes 45 Visit Number 5 Number of TIE HACKER Visits 0 PT-OP-B Current Condition Start: 08/21/19 17:37 Freq: Status: Active Protocol: Document 08/21/19 16:45 HH (Rec: 08/21/19 18:21 HH [email or web address]) Current Condition History of Current Condition Onset Date Many years ago Current Complaints flank pain after nephrectomy History of Current Condition Pt presents to clinic with c/o chronic R lower back pain (R upper quadrant) 3-09/16 after nephrectomy 2 years ago. Pt had R globalized upper quadrant pain since many years ago was treated generalized back for awhile then he was found to have kidney failure and received nephrectomy on June 2017. Pt continue to have persistent pain afterwards which mostly located at the base of 12th rib. He described his pain as deep inside. Stress, prolonged physical activities and bending over seem to worsen his pain but not much. pt saw neurologist and was diagnosed with somatic visceral pain and recommended pt to see Dr. Montiel for pain management by needling treatment and Myofascial treatment from [facility] . Pt states he often wear compression belt and that tends to help. Pt also had a gallbladder scan recently with unremarkable findings. Pt works at the [employer] [place] but he is on limited duty due to his recent L shoulder labral surgery who is seeing [employer] [place] PT at the same time. Pt likes to exercise and run in general. Future Testing and Treatments Planned Needling treatment in 09/02 with Treatment Goals Patient/Caregiver Goals 1. To reduce his overall pain level. Personal Factors Other Personal Factors That May Effect Possible somatic visceral Therapy/Recovery reflex after nephrectomy PT-OP-C Subjective Start: 08/21/19 17:37 Freq: Status: Active Protocol: Document 09/08/19 18:44 [facility] (Rec: 09/08/19 18:48 [facility] [email or web address]) OP-PT Subjective Patient Comments Patient Comments pt reports he has been working on his stretches and abdominal work. He feels his core is getting stronger PT-OP-D Balance Start: 08/21/19 17:37 Freq: Status: Active Protocol: Document 08/21/19 16:45 [facility] (Rec: 08/21/19 18:21 [email or web address]) Balance Tests Other Other Balance Tests Performed excessive trunk shift during SLS PT-OP-F Manual Assessment Start: 08/21/19 17:37 Freq: Status: Active Protocol: Document 08/21/19 16:45 HH (Rec: 08/21/19 18:21 HH [email or web address]) Manual Assessments Soft Tissue Assessment Soft Tissue Mobility Assessment Significant tenderness to pressure at R QL, base of 12 th rib, R hip flexor PT-OP-K Range of Motion Start: 08/21/19 17:37 Freq: Status: Active Protocol: Document 08/21/19 16:45 HH (Rec: 08/21/19 18:21 HH [email or web address]) Lumbar Spine Range of Motion Lumbar Spine Active Percentage Testing Position Standing Flexion 30 Extension 90 Rotation Left 80 Rotation Right 80 Lateral Flexion Left 80 Lateral Flexion Right 80 ROM Limitations Soft Tissue Tightness Comments Toe touch test = finger reach midshin, lack of hip flexion. LBP reproduced Pain reproduced with L lateral flexion and R rotation Hip Goniometric Range of Motion Hip Right Active Hip ROM WFL Yes Knee Goniometric Range of Motion Knee Right Knee ROM WFL Yes Left Knee ROM WFL Yes PT-OP-M Strength Start: 08/21/19 17:37 Freq: Status: Active Protocol: Document 08/21/19 16:45 [facility] (Rec: 08/21/19 18:21 [email or web address]) Trunk Strength Trunk Manual Muscle Testing Comments van zamudioenson test = >60s abdominal flexion test (curl position) =14 s Hip Strength Hip Manual Muscle Testing Right Flexion (L2) 5 Normal Extension (S1) 5 Normal Abduction 5 Normal Adduction 5 Normal External Rotation 5 Normal Internal Rotation 5 Normal Left Flexion (L2) 5 Normal Extension (S1) 5 Normal Abduction 5 Normal Adduction 5 Normal External Rotation 5 Normal Internal Rotation 5 Normal Knee Strength Knee Manual Muscle Testing Right Flexion (S2) 5 Normal Extension (L3) 5 Normal Left Flexion (S2) 5 Normal Extension (L3) 5 Normal PT-OP-Q Treatments Start: 08/21/19 17:37 Freq: Status: Active Protocol: Document 09/08/19 18:44 [facility] (Rec: 09/08/19 18:48 [facility] [email or web address]) Therapeutic Exercises Supine Exercises 2 Supine Exercise Name supine foam roll stretch Reps/Minutes 1-2 minutes Comments started with 1/2 foam roll 1 Supine Exercise Name diaphragmatic breathing Reps/Minutes x 5 reps Comments with tactile cues to expand the rib cage Other Exercises 1 Other Exercise Name nancy pose Comments hold 1-2 min Manual Therapy Treatment Soft Tissue Mobilization 2 Body Location STM lumbar parapsinals on the right Body Position prone over body pillow 1 Body Location MFR over the right side of the abdominal wall, kidney region on the right Body Position Supine Comments worked on breathing with mfr PT-OP-T Assessment and Plan Start: 08/21/19 17:37 Freq: Status: Active Protocol: Document 09/08/19 18:44 [facility] (Rec: 09/08/19 18:48 [facility] [email or web address]) Physical Therapy Assessment Assessment Summary Assessment working on segmental lumbar flexion with core work. Tolerating MFR techniques well , encourageing diaphragmatic breathing for HEP and 1/2 foam roll stretch Physical Therapy Plan Next Visit Focus/Plan Next Note Type Treatment Note Next Visit Plan myofascial release on abdominal and trunk extensor musculature hip posterior chain mobility training ( hamstrings) low back stabiltiy and endurance ex (flexion/ extension)
--- NOTE | 2019-09-15 15:04 | PT.OTN ---
Current Diagnoses Other chronic pain (09/15/19) Physical Therapy Treatment Note PT-OP-A Visit Information Start: 08/21/19 17:37 Freq: Status: Active Protocol: Document 09/15/19 14:56 [facility] (Rec: 09/15/19 15:04 [facility] [email or web address]) Out-Patient Physical Therapy Visit Information Visit Information Visit Type Treatment Note Visit Start Time 10:30 Visit Stop Time 11:15 Total Visit Minutes 45 Visit Number 6 Number of CLINICAL DATA MANAGEMENT MANAGER Visits 0 PT-OP-B Current Condition Start: 08/21/19 17:37 Freq: Status: Active Protocol: Document 08/21/19 16:45 HH (Rec: 08/21/19 18:21 HH [email or web address]) Current Condition History of Current Condition Onset Date Many years ago Current Complaints flank pain after nephrectomy History of Current Condition Pt presents to clinic with c/o chronic R lower back pain (R upper quadrant) 3-09/16 after nephrectomy 2 years ago. Pt had R globalized upper quadrant pain since many years ago was treated generalized back for awhile then he was found to have kidney failure and received nephrectomy on June 2017. Pt continue to have persistent pain afterwards which mostly located at the base of 12th rib. He described his pain as deep inside. Stress, prolonged physical activities and bending over seem to worsen his pain but not much. pt saw neurologist and was diagnosed with somatic visceral pain and recommended pt to see Dr. Montiel for pain management by needling treatment and Myofascial treatment from [facility] . Pt states he often wear compression belt and that tends to help. Pt also had a gallbladder scan recently with unremarkable findings. Pt works at the [employer] but he is on limited duty due to his recent L shoulder labral surgery who is seeing [employer] PT at the same time. Pt likes to exercise and run in general. Future Testing and Treatments Planned Needling treatment in 09/02 with Treatment Goals Patient/Caregiver Goals 1. To reduce his overall pain level. Personal Factors Other Personal Factors That May Effect Possible somatic visceral Therapy/Recovery reflex after nephrectomy PT-OP-C Subjective Start: 08/21/19 17:37 Freq: Status: Active Protocol: Document 09/15/19 14:56 [facility] (Rec: 09/15/19 15:04 [facility] [email or web address]) OP-PT Subjective Patient Comments Patient Comments pt reports he had been doing a little better but his back feels tight today. He didn't sleep well last and is in more pain today. PT-OP-D Balance Start: 08/21/19 17:37 Freq: Status: Active Protocol: Document 08/21/19 16:45 HH (Rec: 08/21/19 18:21 [email or web address]) Balance Tests Other Other Balance Tests Performed excessive trunk shift during SLS PT-OP-F Manual Assessment Start: 08/21/19 17:37 Freq: Status: Active Protocol: Document 08/21/19 16:45 HH (Rec: 08/21/19 18:21 [email or web address]) Manual Assessments Soft Tissue Assessment Soft Tissue Mobility Assessment Significant tenderness to pressure at R QL, base of 12 th rib, R hip flexor PT-OP-K Range of Motion Start: 08/21/19 17:37 Freq: Status: Active Protocol: Document 08/21/19 16:45 HH (Rec: 08/21/19 18:21 [email or web address]) Lumbar Spine Range of Motion Lumbar Spine Active Percentage Testing Position Standing Flexion 30 Extension 90 Rotation Left 80 Rotation Right 80 Lateral Flexion Left 80 Lateral Flexion Right 80 ROM Limitations Soft Tissue Tightness Comments Toe touch test = finger reach midshin, lack of hip flexion. LBP reproduced Pain reproduced with L lateral flexion and R rotation Hip Goniometric Range of Motion Hip Right Active Hip ROM WFL Yes Knee Goniometric Range of Motion Knee Right Knee ROM WFL Yes Left Knee ROM WFL Yes PT-OP-M Strength Start: 08/21/19 17:37 Freq: Status: Active Protocol: Document 08/21/19 16:45 HH (Rec: 08/21/19 18:21 [email or web address]) Trunk Strength Trunk Manual Muscle Testing Comments van lisa test = >60s abdominal flexion test (curl position) =14 s Hip Strength Hip Manual Muscle Testing Right Flexion (L2) 5 Normal Extension (S1) 5 Normal Abduction 5 Normal Adduction 5 Normal External Rotation 5 Normal Internal Rotation 5 Normal Left Flexion (L2) 5 Normal Extension (S1) 5 Normal Abduction 5 Normal Adduction 5 Normal External Rotation 5 Normal Internal Rotation 5 Normal Knee Strength Knee Manual Muscle Testing Right Flexion (S2) 5 Normal Extension (L3) 5 Normal Left Flexion (S2) 5 Normal Extension (L3) 5 Normal PT-OP-Q Treatments Start: 08/21/19 17:37 Freq: Status: Active Protocol: Document 09/15/19 14:56 [facility] (Rec: 09/15/19 15:04 [facility] [email or web address]) Therapeutic Exercises Other Exercises 2 Other Exercise Name 1/2 kneeling iliopsoas stretch Reps/Minutes hold 1-2 minutes each side Manual Therapy Treatment Soft Tissue Mobilization 3 Body Location sidelying QL release 2 Body Location STM lumbar parapsinals on the right Body Position prone over body pillow 1 Body Location MFR over the right side of the abdominal wall, kidney region on the right Body Position Supine Comments worked on breathing with mfr PT-OP-T Assessment and Plan Start: 08/21/19 17:37 Freq: Status: Active Protocol: Document 09/15/19 14:56 [facility] (Rec: 09/15/19 15:04 [facility] [email or web address]) Physical Therapy Assessment Assessment Summary Assessment added in iliopsoas stretch on the right today and Shan could really feel a good stretch into his right side body with this. Continue to address the iliopsoas musculature Physical Therapy Plan Frequency and Duration Frequency of Treatment 2x/Week Duration of Treatment 8 weeks Plan of Care Start Date 08/21/19 Plan of Care End Date 10/20/19
--- NOTE | 2019-09-17 17:38 | PT.OTN ---
Current Diagnoses Other chronic pain (09/17/19) Physical Therapy Treatment Note PT-OP-A Visit Information Start: 08/21/19 17:37 Freq: Status: Active Protocol: Document 09/17/19 17:31 [facility] (Rec: 09/17/19 17:37 [facility] [email or web address]) Out-Patient Physical Therapy Visit Information Visit Information Visit Type Treatment Note Visit Start Time 12:00 Visit Stop Time 12:45 Total Visit Minutes 45 Visit Number 7 Number of ACCOUNTS ADMINISTRATOR Visits 0 PT-OP-B Current Condition Start: 08/21/19 17:37 Freq: Status: Active Protocol: Document 08/21/19 16:45 HH (Rec: 08/21/19 18:21 HH [email or web address]) Current Condition History of Current Condition Onset Date Many years ago Current Complaints flank pain after nephrectomy History of Current Condition Pt presents to clinic with c/o chronic R lower back pain (R upper quadrant) 3-09/16 after nephrectomy 2 years ago. Pt had R globalized upper quadrant pain since many years ago was treated generalized back for awhile then he was found to have kidney failure and received nephrectomy on June 2017. Pt continue to have persistent pain afterwards which mostly located at the base of 12th rib. He described his pain as deep inside. Stress, prolonged physical activities and bending over seem to worsen his pain but not much. pt saw neurologist and was diagnosed with somatic visceral pain and recommended pt to see Dr. Montiel for pain management by needling treatment and Myofascial treatment from [facility] . Pt states he often wear compression belt and that tends to help. Pt also had a gallbladder scan recently with unremarkable findings. Pt works at the [employer] but he is on limited duty due to his recent L shoulder labral surgery who is seeing [employer] PT at the same time. Pt likes to exercise and run in general. Future Testing and Treatments Planned Needling treatment in 09/02 with Treatment Goals Patient/Caregiver Goals 1. To reduce his overall pain level. Personal Factors Other Personal Factors That May Effect Possible somatic visceral Therapy/Recovery reflex after nephrectomy PT-OP-C Subjective Start: 08/21/19 17:37 Freq: Status: Active Protocol: Document 09/17/19 17:31 [facility] (Rec: 09/17/19 17:37 [facility] [email or web address]) OP-PT Subjective Patient Comments Patient Comments pt reports he became sore again following his sit up program. He feels the myofascial release is helping though PT-OP-D Balance Start: 08/21/19 17:37 Freq: Status: Active Protocol: Document 08/21/19 16:45 HH (Rec: 08/21/19 18:21 [email or web address]) Balance Tests Other Other Balance Tests Performed excessive trunk shift during SLS PT-OP-F Manual Assessment Start: 08/21/19 17:37 Freq: Status: Active Protocol: Document 08/21/19 16:45 HH (Rec: 08/21/19 18:21 [email or web address]) Manual Assessments Soft Tissue Assessment Soft Tissue Mobility Assessment Significant tenderness to pressure at R QL, base of 12 th rib, R hip flexor PT-OP-K Range of Motion Start: 08/21/19 17:37 Freq: Status: Active Protocol: Document 08/21/19 16:45 HH (Rec: 08/21/19 18:21 [email or web address]) Lumbar Spine Range of Motion Lumbar Spine Active Percentage Testing Position Standing Flexion 30 Extension 90 Rotation Left 80 Rotation Right 80 Lateral Flexion Left 80 Lateral Flexion Right 80 ROM Limitations Soft Tissue Tightness Comments Toe touch test = finger reach midshin, lack of hip flexion. LBP reproduced Pain reproduced with L lateral flexion and R rotation Hip Goniometric Range of Motion Hip Right Active Hip ROM WFL Yes Knee Goniometric Range of Motion Knee Right Knee ROM WFL Yes Left Knee ROM WFL Yes PT-OP-M Strength Start: 08/21/19 17:37 Freq: Status: Active Protocol: Document 08/21/19 16:45 HH (Rec: 08/21/19 18:21 [email or web address]) Trunk Strength Trunk Manual Muscle Testing Comments van zamudioenson test = >60s abdominal flexion test (curl position) =14 s Hip Strength Hip Manual Muscle Testing Right Flexion (L2) 5 Normal Extension (S1) 5 Normal Abduction 5 Normal Adduction 5 Normal External Rotation 5 Normal Internal Rotation 5 Normal Left Flexion (L2) 5 Normal Extension (S1) 5 Normal Abduction 5 Normal Adduction 5 Normal External Rotation 5 Normal Internal Rotation 5 Normal Knee Strength Knee Manual Muscle Testing Right Flexion (S2) 5 Normal Extension (L3) 5 Normal Left Flexion (S2) 5 Normal Extension (L3) 5 Normal PT-OP-Q Treatments Start: 08/21/19 17:37 Freq: Status: Active Protocol: Document 09/17/19 17:31 [facility] (Rec: 09/17/19 17:37 [facility] [email or web address]) Manual Therapy Treatment Soft Tissue Mobilization 4 Body Location iliopsoas release Comments done in sidelying and supine 3 Body Location sidelying QL release 2 Body Location STM lumbar parapsinals on the right Body Position prone over body pillow 1 Body Location MFR over the right side of the abdominal wall, kidney region on the right Body Position Supine Comments worked on breathing with mfr PT-OP-T Assessment and Plan Start: 08/21/19 17:37 Freq: Status: Active Protocol: Document 09/17/19 17:31 [facility] (Rec: 09/17/19 17:37 [facility] [email or web address]) Physical Therapy Assessment Assessment Summary Assessment discussed with patient how his situps may be activating his core muscle. He was really tight in the iliopsoas today. Worked on releaseing the iliopsoas as well as attachments to the lumbar spine. Pt reports his MRI came back negative Physical Therapy Plan Frequency and Duration Frequency of Treatment 2x/Week Duration of Treatment 8 weeks Plan of Care Start Date 08/21/19 Plan of Care End Date 10/20/19 Next Visit Focus/Plan Next Note Type Treatment Note Next Visit Plan myofascial release on abdominal and trunk extensor musculature hip posterior chain mobility training ( hamstrings) low back stabiltiy and endurance ex (flexion/ extension)
--- NOTE | 2019-09-24 16:44 | PT.OTN ---
Current Diagnoses Other chronic pain (09/24/19) Physical Therapy Treatment Note PT-OP-A Visit Information Start: 08/21/19 17:37 Freq: Status: Active Protocol: Document 09/24/19 16:42 [facility] (Rec: 09/24/19 16:44 [facility] [email or web address]) Out-Patient Physical Therapy Visit Information Visit Information Visit Type Treatment Note Visit Start Time 11:15 Visit Stop Time 12:00 Total Visit Minutes 45 Visit Number 8 Number of VIAL GAUGER Visits 0 PT-OP-B Current Condition Start: 08/21/19 17:37 Freq: Status: Active Protocol: Document 08/21/19 16:45 HH (Rec: 08/21/19 18:21 HH [email or web address]) Current Condition History of Current Condition Onset Date Many years ago Current Complaints flank pain after nephrectomy History of Current Condition Pt presents to clinic with c/o chronic R lower back pain (R upper quadrant) 3-09/16 after nephrectomy 2 years ago. Pt had R globalized upper quadrant pain since many years ago was treated generalized back for awhile then he was found to have kidney failure and received nephrectomy on June 2017. Pt continue to have persistent pain afterwards which mostly located at the base of 12th rib. He described his pain as deep inside. Stress, prolonged physical activities and bending over seem to worsen his pain but not much. pt saw neurologist and was diagnosed with somatic visceral pain and recommended pt to see Dr. Montiel for pain management by needling treatment and Myofascial treatment from [facility] . Pt states he often wear compression belt and that tends to help. Pt also had a gallbladder scan recently with unremarkable findings. Pt works at the [employer] but he is on limited duty due to his recent L shoulder labral surgery who is seeing [employer] PT at the same time. Pt likes to exercise and run in general. Future Testing and Treatments Planned Needling treatment in 09/02 with Treatment Goals Patient/Caregiver Goals 1. To reduce his overall pain level. Personal Factors Other Personal Factors That May Effect Possible somatic visceral Therapy/Recovery reflex after nephrectomy PT-OP-C Subjective Start: 08/21/19 17:37 Freq: Status: Active Protocol: Document 09/24/19 16:42 [facility] (Rec: 09/24/19 16:44 [facility] [email or web address]) OP-PT Subjective Patient Comments Patient Comments pt notes he feels a little tight today and asks about sleeping positions for pain. PT-OP-D Balance Start: 08/21/19 17:37 Freq: Status: Active Protocol: Document 08/21/19 16:45 HH (Rec: 08/21/19 18:21 HH [email or web address]) Balance Tests Other Other Balance Tests Performed excessive trunk shift during SLS PT-OP-F Manual Assessment Start: 08/21/19 17:37 Freq: Status: Active Protocol: Document 08/21/19 16:45 HH (Rec: 08/21/19 18:21 HH [email or web address]) Manual Assessments Soft Tissue Assessment Soft Tissue Mobility Assessment Significant tenderness to pressure at R QL, base of 12 th rib, R hip flexor PT-OP-K Range of Motion Start: 08/21/19 17:37 Freq: Status: Active Protocol: Document 08/21/19 16:45 HH (Rec: 08/21/19 18:21 HH [email or web address]) Lumbar Spine Range of Motion Lumbar Spine Active Percentage Testing Position Standing Flexion 30 Extension 90 Rotation Left 80 Rotation Right 80 Lateral Flexion Left 80 Lateral Flexion Right 80 ROM Limitations Soft Tissue Tightness Comments Toe touch test = finger reach midshin, lack of hip flexion. LBP reproduced Pain reproduced with L lateral flexion and R rotation Hip Goniometric Range of Motion Hip Right Active Hip ROM WFL Yes Knee Goniometric Range of Motion Knee Right Knee ROM WFL Yes Left Knee ROM WFL Yes PT-OP-M Strength Start: 08/21/19 17:37 Freq: Status: Active Protocol: Document 08/21/19 16:45 HH (Rec: 08/21/19 18:21 HH [email or web address]) Trunk Strength Trunk Manual Muscle Testing Comments van lisa test = >60s abdominal flexion test (curl position) =14 s Hip Strength Hip Manual Muscle Testing Right Flexion (L2) 5 Normal Extension (S1) 5 Normal Abduction 5 Normal Adduction 5 Normal External Rotation 5 Normal Internal Rotation 5 Normal Left Flexion (L2) 5 Normal Extension (S1) 5 Normal Abduction 5 Normal Adduction 5 Normal External Rotation 5 Normal Internal Rotation 5 Normal Knee Strength Knee Manual Muscle Testing Right Flexion (S2) 5 Normal Extension (L3) 5 Normal Left Flexion (S2) 5 Normal Extension (L3) 5 Normal PT-OP-Q Treatments Start: 08/21/19 17:37 Freq: Status: Active Protocol: Document 09/24/19 16:42 [facility] (Rec: 09/24/19 16:44 [facility] [email or web address]) Therapeutic Exercises Supine Exercises 2 Supine Exercise Name supine foam roll stretch Reps/Minutes 1-2 minutes Comments started with 1/2 foam roll 1 Supine Exercise Name diaphragmatic breathing Reps/Minutes x 5 reps Comments with tactile cues to expand the rib cage Other Exercises 2 Other Exercise Name 1/2 kneeling iliopsoas stretch Reps/Minutes hold 1-2 minutes each side 1 Other Exercise Name nancy pose Comments hold 1-2 min Manual Therapy Treatment Soft Tissue Mobilization 4 Body Location iliopsoas release Comments done in sidelying and supine 3 Body Location sidelying QL release 2 Body Location STM lumbar parapsinals on the right Body Position prone over body pillow 1 Body Location MFR over the right side of the abdominal wall, kidney region on the right Body Position Supine Comments worked on breathing with mfr PT-OP-T Assessment and Plan Start: 08/21/19 17:37 Freq: Status: Active Protocol: Document 09/24/19 16:42 [facility] (Rec: 09/24/19 16:44 [facility] [email or web address]) Physical Therapy Assessment Assessment Summary Assessment discussed placing a small towel in the small of his back for side sleeping as well as pillow between the knees. Pt has been working on his iliopsoas release stretch at home.
--- NOTE | 2019-09-29 10:43 | PT.OTN ---
Current Diagnoses Other chronic pain (09/29/19) Physical Therapy Treatment Note PT-OP-A Visit Information Start: 08/21/19 17:37 Freq: Status: Active Protocol: Document 09/29/19 08:55 [facility] (Rec: 09/29/19 09:01 [facility] [id number]) Out-Patient Physical Therapy Visit Information Visit Information Visit Type Treatment Note Visit Start Time 09:00 Visit Stop Time 09:45 Total Visit Minutes 45 Visit Number 9 Number of EXPORT DOCUMENTS CLERK Visits 0 PT-OP-B Current Condition Start: 08/21/19 17:37 Freq: Status: Active Protocol: Document 08/21/19 16:45 HH (Rec: 08/21/19 18:21 HH [email or web address]) Current Condition History of Current Condition Onset Date Many years ago Current Complaints flank pain after nephrectomy History of Current Condition Pt presents to clinic with c/o chronic R lower back pain (R upper quadrant) 3-09/16 after nephrectomy 2 years ago. Pt had R globalized upper quadrant pain since many years ago was treated generalized back for awhile then he was found to have kidney failure and received nephrectomy on June 2017. Pt continue to have persistent pain afterwards which mostly located at the base of 12th rib. He described his pain as deep inside. Stress, prolonged physical activities and bending over seem to worsen his pain but not much. pt saw neurologist and was diagnosed with somatic visceral pain and recommended pt to see Dr. Montiel for pain management by needling treatment and Myofascial treatment from [facility] . Pt states he often wear compression belt and that tends to help. Pt also had a gallbladder scan recently with unremarkable findings. Pt works at the [employer] but he is on limited duty due to his recent L shoulder labral surgery who is seeing [employer] PT at the same time. Pt likes to exercise and run in general. Future Testing and Treatments Planned Needling treatment in 09/02 with Treatment Goals Patient/Caregiver Goals 1. To reduce his overall pain level. Personal Factors Other Personal Factors That May Effect Possible somatic visceral Therapy/Recovery reflex after nephrectomy PT-OP-C Subjective Start: 08/21/19 17:37 Freq: Status: Active Protocol: Document 09/29/19 08:55 [facility] (Rec: 09/29/19 09:01 [facility] [id number]) OP-PT Subjective Patient Comments Patient Comments Has been using [employer] this weekend. Downloaded insite timer. Pain 06/16 PT-OP-D Balance Start: 08/21/19 17:37 Freq: Status: Active Protocol: Document 08/21/19 16:45 HH (Rec: 08/21/19 18:21 [email or web address]) Balance Tests Other Other Balance Tests Performed excessive trunk shift during SLS PT-OP-F Manual Assessment Start: 08/21/19 17:37 Freq: Status: Active Protocol: Document 08/21/19 16:45 HH (Rec: 08/21/19 18:21 [email or web address]) Manual Assessments Soft Tissue Assessment Soft Tissue Mobility Assessment Significant tenderness to pressure at R QL, base of 12 th rib, R hip flexor PT-OP-K Range of Motion Start: 08/21/19 17:37 Freq: Status: Active Protocol: Document 08/21/19 16:45 HH (Rec: 08/21/19 18:21 [email or web address]) Lumbar Spine Range of Motion Lumbar Spine Active Percentage Testing Position Standing Flexion 30 Extension 90 Rotation Left 80 Rotation Right 80 Lateral Flexion Left 80 Lateral Flexion Right 80 ROM Limitations Soft Tissue Tightness Comments Toe touch test = finger reach midshin, lack of hip flexion. LBP reproduced Pain reproduced with L lateral flexion and R rotation Hip Goniometric Range of Motion Hip Right Active Hip ROM WFL Yes Knee Goniometric Range of Motion Knee Right Knee ROM WFL Yes Left Knee ROM WFL Yes PT-OP-M Strength Start: 08/21/19 17:37 Freq: Status: Active Protocol: Document 08/21/19 16:45 HH (Rec: 08/21/19 18:21 [email or web address]) Trunk Strength Trunk Manual Muscle Testing Comments van zamudioenson test = >60s abdominal flexion test (curl position) =14 s Hip Strength Hip Manual Muscle Testing Right Flexion (L2) 5 Normal Extension (S1) 5 Normal Abduction 5 Normal Adduction 5 Normal External Rotation 5 Normal Internal Rotation 5 Normal Left Flexion (L2) 5 Normal Extension (S1) 5 Normal Abduction 5 Normal Adduction 5 Normal External Rotation 5 Normal Internal Rotation 5 Normal Knee Strength Knee Manual Muscle Testing Right Flexion (S2) 5 Normal Extension (L3) 5 Normal Left Flexion (S2) 5 Normal Extension (L3) 5 Normal PT-OP-Q Treatments Start: 08/21/19 17:37 Freq: Status: Active Protocol: Document 09/29/19 09:01 [facility] (Rec: 09/29/19 09:12 [facility] [id number]) Therapeutic Exercises Supine Exercises 2 Supine Exercise Name supine foam roll stretch Reps/Minutes 1-2 minutes Comments started with 1/2 foam roll 1 Supine Exercise Name diaphragmatic breathing Reps/Minutes x 5 reps Comments with tactile cues to expand the rib cage Other Exercises self thoracic mobilization Other Exercise Name self thoracic mobilization Reps/Minutes x 5 reps 2 Other Exercise Name 1/2 kneeling iliopsoas stretch Reps/Minutes hold 1-2 minutes each side 1 Other Exercise Name nancy pose Comments hold 1-2 min Manual Therapy Treatment Soft Tissue Mobilization 4 Body Location iliopsoas release Comments done in sidelying and supine 3 Body Location sidelying QL release 2 Body Location STM lumbar parapsinals on the right Body Position prone over body pillow 1 Body Location MFR over the right side of the abdominal wall, kidney region on the right Body Position Supine Comments worked on breathing with mf, taught ILU massage for home PT-OP-T Assessment and Plan Start: 08/21/19 17:37 Freq: Status: Active Protocol: Document 09/29/19 10:41 [facility] (Rec: 09/29/19 10:43 [facility] [email or web address]) Physical Therapy Assessment Assessment Summary Assessment found scar tissue tightness deep in the right side abdominal wall, Worked on MFR of the right ascending colon and psoas muscle today. Shan was instructed in ILU self massage over the colon Physical Therapy Plan Frequency and Duration Frequency of Treatment 2x/Week Duration of Treatment 8 weeks Plan of Care Start Date 08/21/19 Plan of Care End Date 10/20/19 Therapeutic Interventions Therapeutic Interventions Balance Training,Gait Training ,Home Exercise Program,Joint Mobilizations,Manual Therapy, Neuromuscular Re-education, Patient/Caregiver Education, Self-Care/Home Management,Soft Tissue Mobilization, Therapeutic Activities, Therapeutic Exercises Modalities Cold Pack/Ice Massage,Infrared Therapy,Ultrasound Next Visit Focus/Plan Next Note Type Treatment Note Next Visit Plan review ILU self massage, stretches, MFR iliopsoas, low back, Ql musculature
--- NOTE | 2019-10-08 09:42 | PT.OTN ---
Current Diagnoses Other chronic pain (10/01/19) Physical Therapy Treatment Note PT-OP-A Visit Information Start: 08/21/19 17:37 Freq: Status: Active Protocol: Document 10/01/19 18:23 [facility] (Rec: 10/01/19 18:24 [facility] [email or web address]) Out-Patient Physical Therapy Visit Information Visit Information Visit Type Treatment Note Visit Start Time 10:30 Visit Stop Time 11:15 Total Visit Minutes 45 Visit Number 10 PT-OP-B Current Condition Start: 08/21/19 17:37 Freq: Status: Active Protocol: Document 08/21/19 16:45 HH (Rec: 08/21/19 18:21 HH [email or web address]) Current Condition History of Current Condition Onset Date Many years ago Current Complaints flank pain after nephrectomy History of Current Condition Pt presents to clinic with c/o chronic R lower back pain (R upper quadrant) 3-09/16 after nephrectomy 2 years ago. Pt had R globalized upper quadrant pain since many years ago was treated generalized back for awhile then he was found to have kidney failure and received nephrectomy on June 2017. Pt continue to have persistent pain afterwards which mostly located at the base of 12th rib. He described his pain as deep inside. Stress, prolonged physical activities and bending over seem to worsen his pain but not much. pt saw neurologist and was diagnosed with somatic visceral pain and recommended pt to see Dr. Montiel for pain management by needling treatment and Myofascial treatment from [facility] . Pt states he often wear compression belt and that tends to help. Pt also had a gallbladder scan recently with unremarkable findings. Pt works at the [employer] but he is on limited duty due to his recent L shoulder labral surgery who is seeing [employer] [facility] PT at the same time. Pt likes to exercise and run in general. Future Testing and Treatments Planned Needling treatment in 09/02 with Treatment Goals Patient/Caregiver Goals 1. To reduce his overall pain level. Personal Factors Other Personal Factors That May Effect Possible somatic visceral Therapy/Recovery reflex after nephrectomy PT-OP-C Subjective Start: 08/21/19 17:37 Freq: Status: Active Protocol: Document 10/01/19 18:23 [facility] (Rec: 10/01/19 18:24 [facility] [email or web address]) OP-PT Subjective Patient Comments Patient Comments pt reports ice works the best for him at home. He feels tight today PT-OP-D Balance Start: 08/21/19 17:37 Freq: Status: Active Protocol: Document 08/21/19 16:45 HH (Rec: 08/21/19 18:21 HH [email or web address]) Balance Tests Other Other Balance Tests Performed excessive trunk shift during SLS PT-OP-F Manual Assessment Start: 08/21/19 17:37 Freq: Status: Active Protocol: Document 08/21/19 16:45 HH (Rec: 08/21/19 18:21 HH [email or web address]) Manual Assessments Soft Tissue Assessment Soft Tissue Mobility Assessment Significant tenderness to pressure at R QL, base of 12 th rib, R hip flexor PT-OP-K Range of Motion Start: 08/21/19 17:37 Freq: Status: Active Protocol: Document 08/21/19 16:45 HH (Rec: 08/21/19 18:21 HH [email or web address]) Lumbar Spine Range of Motion Lumbar Spine Active Percentage Testing Position Standing Flexion 30 Extension 90 Rotation Left 80 Rotation Right 80 Lateral Flexion Left 80 Lateral Flexion Right 80 ROM Limitations Soft Tissue Tightness Comments Toe touch test = finger reach midshin, lack of hip flexion. LBP reproduced Pain reproduced with L lateral flexion and R rotation Hip Goniometric Range of Motion Hip Right Active Hip ROM WFL Yes Knee Goniometric Range of Motion Knee Right Knee ROM WFL Yes Left Knee ROM WFL Yes PT-OP-M Strength Start: 08/21/19 17:37 Freq: Status: Active Protocol: Document 08/21/19 16:45 HH (Rec: 08/21/19 18:21 HH [email or web address]) Trunk Strength Trunk Manual Muscle Testing Comments biwinsome lisa test = >60s abdominal flexion test (curl position) =14 s Hip Strength Hip Manual Muscle Testing Right Flexion (L2) 5 Normal Extension (S1) 5 Normal Abduction 5 Normal Adduction 5 Normal External Rotation 5 Normal Internal Rotation 5 Normal Left Flexion (L2) 5 Normal Extension (S1) 5 Normal Abduction 5 Normal Adduction 5 Normal External Rotation 5 Normal Internal Rotation 5 Normal Knee Strength Knee Manual Muscle Testing Right Flexion (S2) 5 Normal Extension (L3) 5 Normal Left Flexion (S2) 5 Normal Extension (L3) 5 Normal PT-OP-Q Treatments Start: 08/21/19 17:37 Freq: Status: Active Protocol: Document 09/29/19 09:01 [facility] (Rec: 09/29/19 09:12 [facility] [id number]) Therapeutic Exercises Supine Exercises 2 Supine Exercise Name supine foam roll stretch Reps/Minutes 1-2 minutes Comments started with 1/2 foam roll 1 Supine Exercise Name diaphragmatic breathing Reps/Minutes x 5 reps Comments with tactile cues to expand the rib cage Other Exercises self thoracic mobilization Other Exercise Name self thoracic mobilization Reps/Minutes x 5 reps 2 Other Exercise Name 1/2 kneeling iliopsoas stretch Reps/Minutes hold 1-2 minutes each side 1 Other Exercise Name nancy pose Comments hold 1-2 min Manual Therapy Treatment Soft Tissue Mobilization 4 Body Location iliopsoas release Comments done in sidelying and supine 3 Body Location sidelying QL release 2 Body Location STM lumbar parapsinals on the right Body Position prone over body pillow 1 Body Location MFR over the right side of the abdominal wall, kidney region on the right Body Position Supine Comments worked on breathing with mf, taught ILU massage for home PT-OP-T Assessment and Plan Start: 08/21/19 17:37 Freq: Status: Active Protocol: Document 10/01/19 18:23 [facility] (Rec: 10/08/19 09:41 [facility] [email or web address]) Physical Therapy Assessment Assessment Summary Assessment pt is finding some relief with his stretches and deep breathing as well asd MFR techniques. I continue to encourage home stretching and breathing program for pain management. Physical Therapy Plan Frequency and Duration Frequency of Treatment 2x/Week Duration of Treatment 8 weeks Plan of Care Start Date 08/21/19 Plan of Care End Date 10/20/19 Therapeutic Interventions Therapeutic Interventions Balance Training,Gait Training ,Home Exercise Program,Joint Mobilizations,Manual Therapy, Neuromuscular Re-education, Patient/Caregiver Education, Self-Care/Home Management,Soft Tissue Mobilization, Therapeutic Activities, Therapeutic Exercises Modalities Cold Pack/Ice Massage,Infrared Therapy,Ultrasound Next Visit Focus/Plan Next Note Type Treatment Note Next Visit Plan review home stretching program , ILU massage, work on MFR techniques to open up the right iliopsoas, QL and low back region
--- NOTE | 2019-10-09 18:13 | PT.OTN ---
Current Diagnoses Other chronic pain (10/09/19) Physical Therapy Treatment Note PT-OP-A Visit Information Start: 08/21/19 17:37 Freq: Status: Active Protocol: Document 10/09/19 17:45 [facility] (Rec: 10/09/19 18:10 [facility] [email or web address]) Out-Patient Physical Therapy Visit Information Visit Information Visit Type Progress Note Visit Start Time 15:15 Visit Stop Time 16:00 Total Visit Minutes 45 Visit Number 11 PT-OP-B Current Condition Start: 08/21/19 17:37 Freq: Status: Active Protocol: Document 08/21/19 16:45 HH (Rec: 08/21/19 18:21 HH [email or web address]) Current Condition History of Current Condition Onset Date Many years ago Current Complaints flank pain after nephrectomy History of Current Condition Pt presents to clinic with c/o chronic R lower back pain (R upper quadrant) 3-09/16 after nephrectomy 2 years ago. Pt had R globalized upper quadrant pain since many years ago was treated generalized back for awhile then he was found to have kidney failure and received nephrectomy on June 2017. Pt continue to have persistent pain afterwards which mostly located at the base of 12th rib. He described his pain as deep inside. Stress, prolonged physical activities and bending over seem to worsen his pain but not much. pt saw neurologist and was diagnosed with somatic visceral pain and recommended pt to see Dr. Montiel for pain management by needling treatment and Myofascial treatment from [facility] . Pt states he often wear compression belt and that tends to help. Pt also had a gallbladder scan recently with unremarkable findings. Pt works at the [employer] but he is on limited duty due to his recent L shoulder labral surgery who is seeing [employer] PT at the same time. Pt likes to exercise and run in general. Future Testing and Treatments Planned Needling treatment in 09/02 with Treatment Goals Patient/Caregiver Goals 1. To reduce his overall pain level. Personal Factors Other Personal Factors That May Effect Possible somatic visceral Therapy/Recovery reflex after nephrectomy PT-OP-C Subjective Start: 08/21/19 17:37 Freq: Status: Active Protocol: Document 10/09/19 17:45 [facility] (Rec: 10/09/19 18:10 [facility] [email or web address]) OP-PT Subjective Patient Comments Patient Comments pt reports he has tightness today, he will see Dr. Montiel next week to review MRI PT-OP-D Balance Start: 08/21/19 17:37 Freq: Status: Active Protocol: Document 08/21/19 16:45 HH (Rec: 08/21/19 18:21 HH [email or web address]) Balance Tests Other Other Balance Tests Performed excessive trunk shift during SLS PT-OP-F Manual Assessment Start: 08/21/19 17:37 Freq: Status: Active Protocol: Document 08/21/19 16:45 HH (Rec: 08/21/19 18:21 HH [email or web address]) Manual Assessments Soft Tissue Assessment Soft Tissue Mobility Assessment Significant tenderness to pressure at R QL, base of 12 th rib, R hip flexor PT-OP-K Range of Motion Start: 08/21/19 17:37 Freq: Status: Active Protocol: Document 08/21/19 16:45 HH (Rec: 08/21/19 18:21 HH [email or web address]) Lumbar Spine Range of Motion Lumbar Spine Active Percentage Testing Position Standing Flexion 30 Extension 90 Rotation Left 80 Rotation Right 80 Lateral Flexion Left 80 Lateral Flexion Right 80 ROM Limitations Soft Tissue Tightness Comments Toe touch test = finger reach midshin, lack of hip flexion. LBP reproduced Pain reproduced with L lateral flexion and R rotation Hip Goniometric Range of Motion Hip Right Active Hip ROM WFL Yes Knee Goniometric Range of Motion Knee Right Knee ROM WFL Yes Left Knee ROM WFL Yes PT-OP-M Strength Start: 08/21/19 17:37 Freq: Status: Active Protocol: Document 08/21/19 16:45 HH (Rec: 08/21/19 18:21 HH [email or web address]) Trunk Strength Trunk Manual Muscle Testing Comments van lisa test = >60s abdominal flexion test (curl position) =14 s Hip Strength Hip Manual Muscle Testing Right Flexion (L2) 5 Normal Extension (S1) 5 Normal Abduction 5 Normal Adduction 5 Normal External Rotation 5 Normal Internal Rotation 5 Normal Left Flexion (L2) 5 Normal Extension (S1) 5 Normal Abduction 5 Normal Adduction 5 Normal External Rotation 5 Normal Internal Rotation 5 Normal Knee Strength Knee Manual Muscle Testing Right Flexion (S2) 5 Normal Extension (L3) 5 Normal Left Flexion (S2) 5 Normal Extension (L3) 5 Normal PT-OP-Q Treatments Start: 08/21/19 17:37 Freq: Status: Active Protocol: Document 10/09/19 17:45 [facility] (Rec: 10/09/19 18:10 [facility] [email or web address]) Therapeutic Exercises Supine Exercises 2 Supine Exercise Name supine foam roll stretch Reps/Minutes 1-2 minutes Comments started with 1/2 foam roll 1 Supine Exercise Name diaphragmatic breathing Reps/Minutes x 5 reps Comments with tactile cues to expand the rib cage Other Exercises 2 Other Exercise Name 1/2 kneeling iliopsoas stretch Reps/Minutes hold 1-2 minutes each side Manual Therapy Treatment Soft Tissue Mobilization 4 Body Location iliopsoas release Comments done in sidelying and supine 3 Body Location sidelying QL release 2 Body Location STM lumbar parapsinals on the right Body Position prone over body pillow 1 Body Location MFR over the right side of the abdominal wall, kidney region on the right Body Position Supine Comments worked on breathing with mf, taught ILU massage for home PT-OP-T Assessment and Plan Start: 08/21/19 17:37 Freq: Status: Active Protocol: Document 10/09/19 17:45 [facility] (Rec: 10/09/19 18:10 [facility] [email or web address]) Physical Therapy Assessment Goals Owestry LbP Impairment scores 38 Optimization Specialist Goal (LTG) Pt will be able to reach <20 for Oswestry to improve his overall quality of life LTG Duration 8 weeks pain Impairment chronic pain Short Term Goal (STG) Pt will have no more than 4/10 of right back pain at the end of the day GOOD PROGRESS STG Duration 4 weeks Group Home Goal (LTG) Pt will have no more than 2/10 of right back pain at the end of the day to improve his quality of life LTG Duration 8 weeks toe touch Impairment Pt demonstrates poor posterior chain mobility Short Term Goal (STG) Pt will be able to ankle touch during standing flexion test GOOD PROGRESS STG Duration 4 weeks Group Home Goal (LTG) Pt will be able to floor touch during standing flexion test to improve posterior chain mobility to reduce low back pressure for bend over activities. LTG Duration 8 weeks core stability Impairment pt demonstrates poor core stability Short Term Goal (STG) Pt will reach >25 s for abdominal flexion endurance test , 70 s for biering lisa test Not tested STG Duration 4 weeks Optimization Specialist Goal (LTG) Pt will reach >40 s for abdominal flexion endurance test , 90 s for biering lisa to improve his trunk stability for any physical activity LTG Duration 8 weeks Progress Towards Goals Progress Towards Goals Slow Progress - Other Assessment Summary Assessment Shan notes some relief with MFR techniques and his stretches. He notes his pain levels are staying around a 3/ 10. He finds himself cracking his back throughout the day to give some relief. He has a appointment with Dr. Bush on Sunday Physical Therapy Plan Frequency and Duration Frequency of Treatment 2x/Week Duration of Treatment 8 weeks Plan of Care Start Date 10/09/19 Plan of Care End Date 12/11/19 Therapeutic Interventions Therapeutic Interventions Balance Training,Gait Training ,Home Exercise Program,Joint Mobilizations,Manual Therapy, Neuromuscular Re-education, Patient/Caregiver Education, Self-Care/Home Management,Soft Tissue Mobilization, Therapeutic Activities, Therapeutic Exercises Modalities Cold Pack/Ice Massage,Infrared Therapy,Ultrasound Next Visit Focus/Plan Next Note Type Treatment Note Next Visit Plan review home stretching program , ILU massage, work on MFR techniques to open up the right iliopsoas, QL and low back region
--- NOTE | 2019-10-09 18:16 | PT.OPPN ---
Current Diagnoses Other chronic pain (10/09/19) Physical Therapy Progress Note PT-OP-A Visit Information Start: 08/21/19 17:37 Freq: Status: Active Protocol: Document 10/09/19 17:45 [facility] (Rec: 10/09/19 18:10 AMH [email or web address]) Out-Patient Physical Therapy Visit Information Visit Information Visit Type Progress Note Visit Start Time 15:15 Visit Stop Time 16:00 Total Visit Minutes 45 Visit Number 11 PT-OP-B Current Condition Start: 08/21/19 17:37 Freq: Status: Active Protocol: Document 08/21/19 16:45 HH (Rec: 08/21/19 18:21 HH [email or web address]) Current Condition History of Current Condition Onset Date Many years ago Current Complaints flank pain after nephrectomy History of Current Condition Pt presents to clinic with c/o chronic R lower back pain (R upper quadrant) 3-09/16 after nephrectomy 2 years ago. Pt had R globalized upper quadrant pain since many years ago was treated generalized back for awhile then he was found to have kidney failure and received nephrectomy on June 2017. Pt continue to have persistent pain afterwards which mostly located at the base of 12th rib. He described his pain as deep inside. Stress, prolonged physical activities and bending over seem to worsen his pain but not much. pt saw neurologist and was diagnosed with somatic visceral pain and recommended pt to see Dr. Montiel for pain management by needling treatment and Myofascial treatment from [facility] . Pt states he often wear compression belt and that tends to help. Pt also had a gallbladder scan recently with unremarkable findings. Pt works at the [employer] but he is on limited duty due to his recent L shoulder labral surgery who is seeing [employer] PT at the same time. Pt likes to exercise and run in general. Future Testing and Treatments Planned Needling treatment in 09/02 with Treatment Goals Patient/Caregiver Goals 1. To reduce his overall pain level. Personal Factors Other Personal Factors That May Effect Possible somatic visceral Therapy/Recovery reflex after nephrectomy PT-OP-C Subjective Start: 08/21/19 17:37 Freq: Status: Active Protocol: Document 10/09/19 17:45 [facility] (Rec: 10/09/19 18:10 AMH [email or web address]) OP-PT Subjective Patient Comments Patient Comments pt reports he has tightness today, he will see Dr. Montiel next week to review MRI PT-OP-D Balance Start: 08/21/19 17:37 Freq: Status: Active Protocol: Document 08/21/19 16:45 HH (Rec: 08/21/19 18:21 HH [email or web address]) Balance Tests Other Other Balance Tests Performed excessive trunk shift during SLS PT-OP-F Manual Assessment Start: 08/21/19 17:37 Freq: Status: Active Protocol: Document 08/21/19 16:45 HH (Rec: 08/21/19 18:21 HH [email or web address]) Manual Assessments Soft Tissue Assessment Soft Tissue Mobility Assessment Significant tenderness to pressure at R QL, base of 12 th rib, R hip flexor PT-OP-K Range of Motion Start: 08/21/19 17:37 Freq: Status: Active Protocol: Document 08/21/19 16:45 HH (Rec: 08/21/19 18:21 HH [email or web address]) Lumbar Spine Range of Motion Lumbar Spine Active Percentage Testing Position Standing Flexion 30 Extension 90 Rotation Left 80 Rotation Right 80 Lateral Flexion Left 80 Lateral Flexion Right 80 ROM Limitations Soft Tissue Tightness Comments Toe touch test = finger reach midshin, lack of hip flexion. LBP reproduced Pain reproduced with L lateral flexion and R rotation Hip Goniometric Range of Motion Hip Measured in Degrees Right Active Hip ROM WFL Yes Knee Goniometric Range of Motion Knee Measured in Degrees Right Knee ROM WFL Yes Left Knee ROM WFL Yes PT-OP-M Strength Start: 08/21/19 17:37 Freq: Status: Active Protocol: Document 08/21/19 16:45 HH (Rec: 08/21/19 18:21 [email or web address]) Trunk Strength Trunk Manual Muscle Testing Comments biwinsome lisa test = >60s abdominal flexion test (curl position) =14 s Hip Strength Hip Manual Muscle Testing Right Flexion (L2) 5 Normal Extension (S1) 5 Normal Abduction 5 Normal Adduction 5 Normal External Rotation 5 Normal Internal Rotation 5 Normal Left Flexion (L2) 5 Normal Extension (S1) 5 Normal Abduction 5 Normal Adduction 5 Normal External Rotation 5 Normal Internal Rotation 5 Normal Knee Strength Knee Manual Muscle Testing Right Flexion (S2) 5 Normal Extension (L3) 5 Normal Left Flexion (S2) 5 Normal Extension (L3) 5 Normal PT-OP-T Assessment and Plan Start: 08/21/19 17:37 Freq: Status: Active Protocol: Document 10/09/19 17:45 AM[facility] (Rec: 10/09/19 18:10 AMH [email or web address]) Physical Therapy Assessment Goals Owestry LbP Impairment scores 38 Tester Rocket Engine Goal (LTG) Pt will be able to reach <20 for Oswestry to improve his overall quality of life LTG Duration 8 weeks pain Impairment chronic pain Short Term Goal (STG) Pt will have no more than 4/10 of right back pain at the end of the day GOOD PROGRESS STG Duration 4 weeks Alf Goal (LTG) Pt will have no more than 2/10 of right back pain at the end of the day to improve his quality of life LTG Duration 8 weeks toe touch Impairment Pt demonstrates poor posterior chain mobility Short Term Goal (STG) Pt will be able to ankle touch during standing flexion test GOOD PROGRESS STG Duration 4 weeks Tester Rocket Engine Goal (LTG) Pt will be able to floor touch during standing flexion test to improve posterior chain mobility to reduce low back pressure for bend over activities. LTG Duration 8 weeks core stability Impairment pt demonstrates poor core stability Short Term Goal (STG) Pt will reach >25 s for abdominal flexion endurance test , 70 s for biering lisa test Not tested STG Duration 4 weeks Alf Goal (LTG) Pt will reach >40 s for abdominal flexion endurance test , 90 s for biering lisa to improve his trunk stability for any physical activity LTG Duration 8 weeks Progress Towards Goals Progress Towards Goals Slow Progress - Other Assessment Summary Assessment Shan notes some relief with MFR techniques and his stretches. He notes his pain levels are staying around a 3/ 10. He finds himself cracking his back throughout the day to give some relief. He has a appointment with Dr. Bush on Sunday Physical Therapy Plan Frequency and Duration Frequency of Treatment 2x/Week Duration of Treatment 8 weeks Plan of Care Start Date 10/09/19 Plan of Care End Date 12/11/19 Therapeutic Interventions Therapeutic Interventions Balance Training,Gait Training ,Home Exercise Program,Joint Mobilizations,Manual Therapy, Neuromuscular Re-education, Patient/Caregiver Education, Self-Care/Home Management,Soft Tissue Mobilization, Therapeutic Activities, Therapeutic Exercises Modalities Cold Pack/Ice Massage,Infrared Therapy,Ultrasound Next Visit Focus/Plan Next Note Type Treatment Note Next Visit Plan review home stretching program , ILU massage, work on MFR techniques to open up the right iliopsoas, QL and low back region
--- NOTE | 2019-10-09 18:18 | PT.OPPOC ---
Physical, Occupational & Speech Therapy At [facility] Current Diagnoses Other chronic pain (10/09/19) Visit Care Team Role Provider Type Trinidad Gutierrez MD Attending Provider Non-Staff Primary Care Provider Referring Provider Specialty: Family Practice Address: [address] [place] [address], [phone] Email: Plan Of Care PT-OP-T Assessment and Plan Start: 08/21/19 17:37 Freq: Status: Active Protocol: Document 10/09/19 17:45 AMH (Rec: 10/09/19 18:10 AMH [email or web address]) Physical Therapy Assessment Goals Owestry LbP Impairment scores 38 Jail Goal (LTG) Pt will be able to reach <20 for Oswestry to improve his overall quality of life LTG Duration 8 weeks pain Impairment chronic pain Short Term Goal (STG) Pt will have no more than 4/10 of right back pain at the end of the day GOOD PROGRESS STG Duration 4 weeks Gift Shop Assistant Goal (LTG) Pt will have no more than 2/10 of right back pain at the end of the day to improve his quality of life LTG Duration 8 weeks toe touch Impairment Pt demonstrates poor posterior chain mobility Short Term Goal (STG) Pt will be able to ankle touch during standing flexion test GOOD PROGRESS STG Duration 4 weeks Gift Shop Assistant Goal (LTG) Pt will be able to floor touch during standing flexion test to improve posterior chain mobility to reduce low back pressure for bend over activities. LTG Duration 8 weeks core stability Impairment pt demonstrates poor core stability Short Term Goal (STG) Pt will reach >25 s for abdominal flexion endurance test , 70 s for biering lisa test Not tested STG Duration 4 weeks Jail Goal (LTG) Pt will reach >40 s for abdominal flexion endurance test , 90 s for biering lisa to improve his trunk stability for any physical activity LTG Duration 8 weeks Progress Towards Goals Progress Towards Goals Slow Progress - Other Assessment Summary Assessment Shan notes some relief with MFR techniques and his stretches. He notes his pain levels are staying around a 3/ 10. He finds himself cracking his back throughout the day to give some relief. He has a appointment with Dr. Bush on Sunday. He would benefit from continued PT. Physical Therapy Plan Frequency and Duration Frequency of Treatment 2x/Week Duration of Treatment 8 weeks Plan of Care Start Date 10/09/19 Plan of Care End Date 12/11/19 Therapeutic Interventions Therapeutic Interventions ,Home Exercise Program,Joint Mobilizations,Manual Therapy, Neuromuscular Re-education, Patient/Caregiver Education, Self-Care/Home Management,Soft Tissue Mobilization, Therapeutic Activities, Therapeutic Exercises Modalities Cold Pack/Ice Massage,Infrared Therapy,Ultrasound Next Visit Focus/Plan Next Note Type Treatment Note Next Visit Plan review home stretching program , ILU massage, work on MFR techniques to open up the right iliopsoas, QL and low back region Plan of Care Dates Plan of Care Start Date 10/09/19 Plan of Care End Date 12/11/19 Electronically Signed by: Radha Noyola, PT 10/09/19 [id number] Please Sign and Return: I have reviewed this Plan of Care and certify that the skilled therapy services above are required to meet the patient?s needs. Physician Signature Date Printed Name and Credentials Clinical Instructor Signature Printed Name and Credentials
--- NOTE | 2019-10-15 13:59 | PT.OTN ---
Current Diagnoses Other chronic pain (10/14/19) Physical Therapy Treatment Note PT-OP-A Visit Information Start: 08/21/19 17:37 Freq: Status: Active Protocol: Document 10/14/19 13:46 AMH (Rec: 10/15/19 13:59 [facility] [id number]) Out-Patient Physical Therapy Visit Information Visit Information Visit Type Treatment Note Visit Start Time 11:15 Visit Stop Time 12:00 Total Visit Minutes 45 Visit Number 12 PT-OP-B Current Condition Start: 08/21/19 17:37 Freq: Status: Active Protocol: Document 08/21/19 16:45 HH (Rec: 08/21/19 18:21 HH [email or web address]) Current Condition History of Current Condition Onset Date Many years ago Current Complaints flank pain after nephrectomy History of Current Condition Pt presents to clinic with c/o chronic R lower back pain (R upper quadrant) 3-09/16 after nephrectomy 2 years ago. Pt had R globalized upper quadrant pain since many years ago was treated generalized back for awhile then he was found to have kidney failure and received nephrectomy on June 2017. Pt continue to have persistent pain afterwards which mostly located at the base of 12th rib. He described his pain as deep inside. Stress, prolonged physical activities and bending over seem to worsen his pain but not much. pt saw neurologist and was diagnosed with somatic visceral pain and recommended pt to see Dr. Montiel for pain management by needling treatment and Myofascial treatment from [facility] . Pt states he often wear compression belt and that tends to help. Pt also had a gallbladder scan recently with unremarkable findings. Pt works at the [employer] but he is on limited duty due to his recent L shoulder labral surgery who is seeing [employer] PT at the same time. Pt likes to exercise and run in general. Future Testing and Treatments Planned Needling treatment in 09/02 with Treatment Goals Patient/Caregiver Goals 1. To reduce his overall pain level. Personal Factors Other Personal Factors That May Effect Possible somatic visceral Therapy/Recovery reflex after nephrectomy PT-OP-C Subjective Start: 08/21/19 17:37 Freq: Status: Active Protocol: Document 10/14/19 13:46 AMH (Rec: 10/15/19 13:59 [facility] [id number]) OP-PT Subjective Patient Comments Patient Comments Pt reports Dr. Montiel reviewed his lumbar MRI and Xrays and does feel he has degenerative changes at L3-4. L4-5, L5-S1. He will be getting a spinal injection. Shan feels the MFR and stretches have helped but he is still feeling his right sided flank pain PT-OP-D Balance Start: 08/21/19 17:37 Freq: Status: Active Protocol: Document 08/21/19 16:45 HH (Rec: 08/21/19 18:21 [email or web address]) Balance Tests Other Other Balance Tests Performed excessive trunk shift during SLS PT-OP-F Manual Assessment Start: 08/21/19 17:37 Freq: Status: Active Protocol: Document 08/21/19 16:45 HH (Rec: 08/21/19 18:21 HH [email or web address]) Manual Assessments Soft Tissue Assessment Soft Tissue Mobility Assessment Significant tenderness to pressure at R QL, base of 12 th rib, R hip flexor PT-OP-K Range of Motion Start: 08/21/19 17:37 Freq: Status: Active Protocol: Document 08/21/19 16:45 HH (Rec: 08/21/19 18:21 [email or web address]) Lumbar Spine Range of Motion Lumbar Spine Active Percentage Testing Position Standing Flexion 30 Extension 90 Rotation Left 80 Rotation Right 80 Lateral Flexion Left 80 Lateral Flexion Right 80 ROM Limitations Soft Tissue Tightness Comments Toe touch test = finger reach midshin, lack of hip flexion. LBP reproduced Pain reproduced with L lateral flexion and R rotation Hip Goniometric Range of Motion Hip Right Active Hip ROM WFL Yes Knee Goniometric Range of Motion Knee Right Knee ROM WFL Yes Left Knee ROM WFL Yes PT-OP-M Strength Start: 08/21/19 17:37 Freq: Status: Active Protocol: Document 08/21/19 16:45 HH (Rec: 08/21/19 18:21 [email or web address]) Trunk Strength Trunk Manual Muscle Testing Comments biering lisa test = >60s abdominal flexion test (curl position) =14 s Hip Strength Hip Manual Muscle Testing Right Flexion (L2) 5 Normal Extension (S1) 5 Normal Abduction 5 Normal Adduction 5 Normal External Rotation 5 Normal Internal Rotation 5 Normal Left Flexion (L2) 5 Normal Extension (S1) 5 Normal Abduction 5 Normal Adduction 5 Normal External Rotation 5 Normal Internal Rotation 5 Normal Knee Strength Knee Manual Muscle Testing Right Flexion (S2) 5 Normal Extension (L3) 5 Normal Left Flexion (S2) 5 Normal Extension (L3) 5 Normal PT-OP-Q Treatments Start: 08/21/19 17:37 Freq: Status: Active Protocol: Document 10/14/19 13:46 [facility] (Rec: 10/15/19 13:59 [facility] [id number]) Therapeutic Exercises Supine Exercises 2 Supine Exercise Name supine foam roll stretch Reps/Minutes 1-2 minutes Comments started with 1/2 foam roll 1 Supine Exercise Name diaphragmatic breathing Reps/Minutes x 5 reps Comments with tactile cues to expand the rib cage Other Exercises 1 Other Exercise Name nancy pose Comments hold 1-2 min Manual Therapy Treatment Soft Tissue Mobilization 4 Body Location iliopsoas release Comments done in sidelying and supine 3 Body Location sidelying QL release 2 Body Location STM lumbar parapsinals on the right Body Position prone over body pillow PT-OP-T Assessment and Plan Start: 08/21/19 17:37 Freq: Status: Active Protocol: Document 10/14/19 13:46 [facility] (Rec: 10/15/19 13:59 [facility] [id number]) Physical Therapy Assessment Assessment Summary Assessment Shan has started returning to his running, he continues to work on his stretches. He is still having c/o right sided flank pain. He will pursue spinal injections with Dr. Montiel. He does have 1 PT visit left Physical Therapy Plan Frequency and Duration Frequency of Treatment 2x/Week Duration of Treatment 8 weeks Plan of Care Start Date 10/09/19 Plan of Care End Date 12/11/19 Next Visit Focus/Plan Next Note Type Treatment Note Next Visit Plan review full home program as this will be Shan's last visit. MFR over the abdominal wall, right lumbar spine, diaphragmatic breathing techniques
--- NOTE | 2019-12-15 14:33 | PT.OPDS ---
Current Diagnoses Other chronic pain (10/14/19) Visit Care Team Role Provider Type Trinidad Gutierrez MD Attending Provider Non-Staff Primary Care Provider Referring Provider Specialty: Family Practice Address: [address] [place] [address], [facility] Email: Visit Number Visit Number 12 Discharge Summary PT-OP-B Current Condition Start: 08/21/19 17:37 Freq: Status: Active Protocol: Document 08/21/19 16:45 HH (Rec: 08/21/19 18:21 HH [email or web address]) Current Condition History of Current Condition Onset Date Many years ago Current Complaints flank pain after nephrectomy History of Current Condition Pt presents to clinic with c/o chronic R lower back pain (R upper quadrant) 3-09/16 after nephrectomy 2 years ago. Pt had R globalized upper quadrant pain since many years ago was treated generalized back for awhile then he was found to have kidney failure and received nephrectomy on June 2017. Pt continue to have persistent pain afterwards which mostly located at the base of 12th rib. He described his pain as deep inside. Stress, prolonged physical activities and bending over seem to worsen his pain but not much. pt saw neurologist and was diagnosed with somatic visceral pain and recommended pt to see Dr. Montiel for pain management by needling treatment and Myofascial treatment from [facility] . Pt states he often wear compression belt and that tends to help. Pt also had a gallbladder scan recently with unremarkable findings. Pt works at the [employer] but he is on limited duty due to his recent L shoulder labral surgery who is seeing [employer] PT at the same time. Pt likes to exercise and run in general. Future Testing and Treatments Planned Needling treatment in 09/02 with Treatment Goals Patient/Caregiver Goals 1. To reduce his overall pain level. Personal Factors Other Personal Factors That May Effect Possible somatic visceral Therapy/Recovery reflex after nephrectomy PT-OP-C Subjective Start: 08/21/19 17:37 Freq: Status: Active Protocol: Document 10/14/19 13:46 [facility] (Rec: 10/15/19 13:59 [facility] [id number]) OP-PT Subjective Patient Comments Patient Comments Pt reports Dr. Montiel reviewed his lumbar MRI and Xrays and does feel he has degenerative changes at L3-4. L4-5, L5-S1. He will be getting a spinal injection. Shan feels the MFR and stretches have helped but he is still feeling his right sided flank pain PT-OP-D Balance Start: 08/21/19 17:37 Freq: Status: Active Protocol: Document 08/21/19 16:45 HH (Rec: 08/21/19 18:21 [email or web address]) Balance Tests Other Other Balance Tests Performed excessive trunk shift during SLS PT-OP-F Manual Assessment Start: 08/21/19 17:37 Freq: Status: Active Protocol: Document 08/21/19 16:45 HH (Rec: 08/21/19 18:21 [email or web address]) Manual Assessments Soft Tissue Assessment Soft Tissue Mobility Assessment Significant tenderness to pressure at R QL, base of 12 th rib, R hip flexor PT-OP-K Range of Motion Start: 08/21/19 17:37 Freq: Status: Active Protocol: Document 08/21/19 16:45 HH (Rec: 08/21/19 18:21 [email or web address]) Lumbar Spine Range of Motion Lumbar Spine Active Percentage Testing Position Standing Flexion 30 Extension 90 Rotation Left 80 Rotation Right 80 Lateral Flexion Left 80 Lateral Flexion Right 80 ROM Limitations Soft Tissue Tightness Comments Toe touch test = finger reach midshin, lack of hip flexion. LBP reproduced Pain reproduced with L lateral flexion and R rotation Hip Goniometric Range of Motion Hip Right Active Hip ROM WFL Yes Knee Goniometric Range of Motion Knee Right Knee ROM WFL Yes Left Knee ROM WFL Yes PT-OP-M Strength Start: 08/21/19 17:37 Freq: Status: Active Protocol: Document 08/21/19 16:45 HH (Rec: 08/21/19 18:21 [email or web address]) Trunk Strength Trunk Manual Muscle Testing Comments van gonzalez test = >60s abdominal flexion test (curl position) =14 s Hip Strength Hip Manual Muscle Testing Right Flexion (L2) 5 Normal Extension (S1) 5 Normal Abduction 5 Normal Adduction 5 Normal External Rotation 5 Normal Internal Rotation 5 Normal Left Flexion (L2) 5 Normal Extension (S1) 5 Normal Abduction 5 Normal Adduction 5 Normal External Rotation 5 Normal Internal Rotation 5 Normal Knee Strength Knee Manual Muscle Testing Right Flexion (S2) 5 Normal Extension (L3) 5 Normal Left Flexion (S2) 5 Normal Extension (L3) 5 Normal PT-OP-T Assessment and Plan Start: 08/21/19 17:37 Freq: Status: Active Protocol: Document 12/15/19 14:32 [facility] (Rec: 12/15/19 14:32 [facility] [email or web address]) Physical Therapy Assessment Assessment Summary Assessment Shan has started returning to his running, he continues to work on his stretches. He is still having c/o right sided flank pain. He will pursue spinal injections with Dr. Montiel. DC PT at this time Physical Therapy Plan Discharge Physical Therapy Discharge Reasons Plateau in Progress Discharge Comments Shan will follow up with DR Anahy Montiel as he continues to expereince right sided flank pain.
== END 2019-12-16 11:00 ==
LOC: PHYS 11:15
DX: G89.29 Other chronic pain (principal)
CPT/HCPCS: 97110; 97140; 97162

== ENCOUNTER → 2019-10-20 08:04 | Outpatient (CLI) | payer OTHER, SELFPAY ==
--- NOTE | 2019-10-20 | DI.RAD.S_ITS ---
PROCEDURE: FL BARIUM SWALLOW W SPEECH INDICATIONS: Dysphagia TECHNIQUE: Examination was conducted in conjunction with speech pathology per standard protocol. In the lateral projection, filming was performed of the patient swallowing. AP projection filming may also be performed with patient swallowing. COMPARISON: None. FINDINGS: Function: The oral preparatory phase appears normal, with proper containment. The subsequent oral propulsive phase, pharyngeal phase, and esophageal phase of swallowing also appear normal with all proffered substances. No laryngotracheal penetration or aspiration. No pathologic vallecular pooling. Morphology: No cricopharyngeal bar is identified. No cervical esophageal webs. No Zenker's diverticulum. No strictures. IMPRESSION: Normal examination. Please also refer to the dedicated speech therapy swallowing evaluation report which will be independently generated. Dictated by: Yoni Hahn M.D. on 10/20/2019 at 11:20 Approved by: Yoni Hahn M.D. on 10/20/2019 at 11:22
--- NOTE | 2019-10-20 14:10 | ST.SWALLOW ---
Visit Care Team Role Provider Type Trinidad Gutierrez MD Attending Provider Non-Staff Primary Care Provider Referring Provider Specialty: Family Practice Address: [address] [place] [address], [phone] Email: Modified Barium Swallow Study BALANCE TRUER Modified Barium Swallow Study Start: 10/20/19 13:27 Freq: Status: Active Protocol: Document 10/20/19 13:27 LNK (Rec: 10/20/19 14:05 LNK [email or web address]) Modified Barium Swallow Study Total Time Visit Start Time 08:30 Visit Stop Time 09:00 Total Visit Minutes 30 Visit Information Visit Number 1 Plan of Care Dates 10/20/19-12/21/[address] Noonan/MASSIMO Jasso Reason for Referral dysphagia Setting Setting Outpatient Care Patient Information Identification Type Name,ID Wristband Patient History Shan was seen for a Modified Barium Swallow Studdy (MBSS) at the referral of his GI specialist Dr. Noonan. According to Shan, he has been diagnosed with many esophageal dysfunctions including: EoE, Shotzke's ring , concentric rings, a narrow UES and GERD. He recently has an EGD at [facility] and may have another in the near future. Shan described that he frequently gags, has difficulty with swallowing , has a sense of globus in this throat near thyroid notch. He often (at least daily) will regurgitate undigested foods and re- swallow. He was referred for MBS to rule out oropharyngeal dysphagia. Subjective Observations Shan was seated in the flouroscopy chair. Procedures and directions were provided. Shan indicated he understood and agreed to proceed. Patient Positioning Position View A/P Imaging Lateral View Textures Administered Trials Presented Thin Liquid via Spoon,Thin Liquid via Cup,Regular Textures Oral Phase Source: MBSIMP (TM) (C) Bolus Specific Scoring Grid Lip Closure No Impairment (WNL) Tongue Control During Bolus Hold No Impairment (WNL) Bolus Prep/Mastication No Impairment (WNL) Bolus Transport/Lingual Motion No Impairment (WNL) A/P Lingual Propulsion Delay No Oral Residue WFL Residue Clearing WFL Nasal Regurgitation No Pharyngeal Phase Source: MBSIMP (TM) (C) Bolus Specific Scoring Grid Delayed Initiation of Pharyngeal Swallow Yes: Premature spillage to the pyriform sinuses Number of Seconds Delayed (seconds) ~1s Soft Palate Elevation WFL Tongue Base Strength/Range of Motion Mild Impairment Residue Along the Tongue Base Yes Clearance of Residue Along Tongue Base Minimal Impairment Laryngeal Elevation WFL Anterior Hyoid Movement WFL Epiglottic Range of Motion WFL Vallecular Residue Yes Clearance of Vallecular Residue Mild Impairment Laryngeal Vestibular Closure WFL Pharyngeal Stripping Wave Moderate Impairment Posterior Pharyngeal Wall Residue Yes Clearance of Posterior Pharyngeal Wall Moderate Impairment Residue Upper Esophageal Sphincter Opening Mild Impairment Residue in the Pyriform Sinuses Yes Clearance of Residue in the Pyriform Moderate Impairment Sinuses Esophageal Clearance Upright Position Mild Impairment Pharyngoesophageal Backflow Observed No A/P View Textures Administered Trials Presented Thin Liquid via Spoon,Thin Liquid via Cup,Regular Textures A/P View Observations Pharyngeal Contraction Mild Impairment Residue Observed Pyriform Sinus Left Esophageal Function WFL,Slowed Clearing Esophageal Clearance Upright Position Minimal Impairment Clinical Impressions Dysphagia Type Pharyngeal Findings Shan presented with normal oral phase of swallowing and a mild-moderate pharyngeal impairment. His swallow initiation was delayed with the head of the bolus passing to the pyriform sinuses before the swallow was completed. Additionally there was residue observed in the valeculla, the pyriform sinuses, base of tongue and on the posterior pharyngeal wall at the inferior level near the UES. During each swallow the pharyngeal contraction appeared to be weak for the medial constrictor and little to no inferior muscle constriction occurring. The pharyngeal cavity was wide during the swallow. The bolus was observed to pass to the UES without control after the base of tongue. The epiglottis was noted to invert adequately. Hyolaryngeal elevation and forward excursion were observed to be WFL. Toward the end of the MBS , with solids trialed, Shan complained of a sensation of foods stuck in his throat, pointing to the area near the thyroid notch. Lateral view of the inferior pharynx noted several pieces of cookie residue. An AP screen view noted esophageal clearance to be WFL . Patient Appropriate for Therapy Yes Recommendations Diet Comments No change in diet texture at this time. Treatment Plan Recommended Referrals Primary Care Physician,GI Consult Additional Recommended Referrals Dysphagia therapy Short Term Goals Shan will review his MBS with BALANCE TRUER for education and description of therapeutic exercises. Therapeutic exercises will be assigned as indicated.
== END ==
DX: R13.10 Dysphagia, unspecified (principal)
CPT/HCPCS: 74230; 92611

== ENCOUNTER → 2019-11-17 09:30 | Outpatient (CLI) | payer OTHER, SELFPAY ==
[2019-11-18 07:25] LABS: COVID19 Sendout Not Detected (Not Detect)
== END ==
PROVIDERS: Visit Provider Physician Assistant
DX: Z11.59 Encounter for screening for other viral diseases (principal)
CPT/HCPCS: 87635

== ENCOUNTER 2019-11-20 12:54 | Outpatient (CLI) | payer OTHER, SELFPAY ==
[2019-11-20] VITALS (8 sets, daily range): BP systolic 109–147; BP diastolic 53–81; PULSE 72–88; RESP 8–17; TEMP 36.4; O2SAT 95–99
--- NOTE | 2019-11-20 12:55 | DI.RAD.S_ITS ---
PROCEDURE: PAIN L/SI FACET INJ/BLK 1STL INDICATIONS: SPONDYLOSIS COMPARISON: [facility], MR, MR LUMBAR SPINE WO CON, 09/12/2019, 7:57. [facility], CR, XR LUMBAR SPINE MIN 4V, 09/12/2019, 7:07. FINDINGS: Fluoroscopic spot filming was performed to verify placement of spinal needles at the right L3-L4, L4-L5 and L5-S1 level(s), as labeled on the films. Appropriate location(s) of the needle tip(s) was confirmed by injection of iodinated contrast. IMPRESSION: Fluoroscopy for pain management. Dictated by: Shayna Bowman M.D. on 11/20/2019 at 14:28 Approved by: Shayna Bowman M.D. on 11/20/2019 at 14:29
--- NOTE | 2019-11-20 13:31 | PC.NURSE ---
Patient is A&O able to make needs known. Green pain log with post injection instructions reviewed. Has no questions or concerns at this time.
[2019-11-20] MEDS: fentaNYL 100 MCG/2 ML INJ 50 MCG IV (13:56)
[2019-11-20] MEDS: MIDAZOLAM 5 MG/5 ML VIAL IV (13:56)
[2019-11-20] MEDS: LIDOCAINE 1% 20 ML 10 ML INJ (14:00)
[2019-11-20] MEDS: IOPAMIDOL 15 ML VIAL 3 ML INJ (14:00)
[2019-11-20] MEDS: BUPIVACAINE 0.5% (PF) VIAL 2 ML INJ (14:00)
[2019-11-20] MEDS: BETAMETHASONE 30 MG/5 ML MDV 12 MG INJ (14:00)
--- NOTE | 2019-11-20 14:18 | P.PCN_ITS ---
Date/Time/Diagnoses Date of procedure: 11/20/19 Time of procedure: 14:18 Pre-procedure diagnosis: 1. FACET ARTHROPATHY, 2. AXIAL LBP, 3. MULTILEVEL DDD Post-procedure diagnosis: same Procedure Notes Procedure: 1. FLUOROSCOPICALLY GUIDED CONTRAST CONTROLLED FACET JOINT INJECTIONS RIGHT L3/4, L4/5, L5/S1 Indications: Shan is referred by for treatment of Axial LBP Physician: Kiko Montiel Total Fluoroscopy time (seconds): 6 Total sedation minutes: 10 Complications: none Procedure in detail & Post-procedure care: FINDINGS Multilevel Facet Arthropathy with Clinically significant axial LBP DESCRIPTION OF PROCEDURE Fluoroscopically guided, contrast-controlled right L3/4, L4/5, L5/S1 facet joint injections. Following review of allergy and review of potential side effects and complications, including, but not necessarily limited to, infection, allergic reaction, local tissue breakdown, stroke, temporary or permanent nerve injury, paralysis, and possible , the patient indicated that the patient understood and agreed to proceed. An informed consent document was signed by the patient, witnessed by a nurse, and placed in the patient's chart. Additionally, other treatment options including medications, modalities, and physical therapy were reviewed with the patient. After review of previous anaesthesic history and IV conscious sedation the pa tient was deemed safe to proceed with today?s procedure with IV conscious sedation as ASA class II designation. Safety time-out was performed to confirm patient ID, procedure to be performed and site of procedure. IV sedation was accomplished with a combination of 2mg of Versed and 50mcg of Fentanyl was administered by the RN after DO order, titrated to patient comfort during the course of the procedure while the patient remained responsive to all verbal commands. In the prone position, following sterile prep and drape of the lumbar region, the posterior aspect of the right L3/4, L4/5, L5/S1 facet joints were identified fluoroscopically. The skin was anesthetized via a 25-gauge 1.5-inch needle with 1% lidocaine solution into the corresponding facet joints. At this point, a 22- gauge 3.5-inch spinal needle was atraumatically introduced and advanced under fluoroscopic guidance into the corresponding facet joints. Following negative aspiration, injections of approximately 0.2-cc of Isovue 200 confirmed interarticular placement without vascular uptake. Radiological data, including multiple fluoroscopic views of the lumbosacral spine, reveal a spinal needle at the right L3/4, L4/5, L5/S1 facet joints. Subsequent views show flow of contrast material both superiorly and inferiorly within the joint space without vascular or intrathecal uptake. At this point, a total of 0.5 cc including a mixture of 0.25cc Marcaine and 0.25cc betamethasone was injected without complication into each of the corresponding facet joints. The procedure tolerated the procedure well without signs or symptoms of complications prior to transfer to the recovery area continued monitoring without incident. The patient was then transferred to the recovery area where they were observed for an appropriate period of time after the injection. The patient reported a VAS score of 5 prior to the procedure and a post-procedure VAS of 0. POST OP INSTRUCTIONS The patient was provided a Pain Log to continue to record their response to the target-specific procedure prior to follow-up visit with their referring physician. Additionally, specific post-injection care instructions and a contact number to our office were provided if concerns arise regarding possible complications associated with the procedure are suspected.
--- NOTE | 2019-11-20 14:19 | PC.NURSE ---
tolerated procedure well, assisted off table to wc, returned to pre proc room for further monitorin
== END 2019-11-20 14:35 | disposition home or self-care (01) ==
PROVIDERS: Referring Provider Physical Medicine & Rehabilitation; Visit Provider Physical Medicine & Rehabilitation
DX: M47.817 Spondylosis without myelopathy or radiculopathy, lumbosacral region (principal); M47.816 Spondylosis without myelopathy or radiculopathy, lumbar region; M54.5 Low back pain; M51.36 Other intervertebral disc degeneration, lumbar region; M51.37 Other intervertebral disc degeneration, lumbosacral region
CPT/HCPCS: 64493; 64494; 64495; 99152; J0702; J2250; J3010

== ENCOUNTER 2019-12-01 12:30 | Outpatient (RCR) | payer OTHER, SELFPAY ==
--- NOTE | 2019-10-31 12:39 | ST.OPIE ---
Visit Care Team Role Provider Type Trinidad Gutierrez MD Attending Provider Non-Staff Primary Care Provider Referring Provider Specialty: Family Practice Address: [address] [place] [address], [id number] Email: Speech-Language Pathology Initial Evaluation [employer] Clinical Swallow Evaluation Start: 10/29/19 14:17 Freq: Status: Active Protocol: Document 10/29/19 12:06 DANIELE (Rec: 10/31/19 12:36 DANIELE [email or web address]) Clinical Swallow Evaluation Session Time Visit Start Time 14:30 Visit Stop Time 15:30 Total Visit Minutes 60 Visit Information Visit Number Initial Evaluation Plan of Care Dates 10/29/19 - 01/25/20 Insurance Information [facility] Referral Referring Physician Dr. Trinidad Gutierrez Reason for Referral Dysphagia Setting Assessment Location Outpatient Care Visit Type Note Type Initial Evaluation Next Note Type Next Note Type Treatment Note Patient Information Identification Type Name,ID Card History The pt is a 34-year-old male who was seen 10/20/19 for Modified Barium Swallow Study (MBSS) d/t frequent gagging and coughing with oral intake. Per medical records and pt report, he has been diagnosed with multiple esophageal dysfunctions including EoE, Shotzke's ring, concentric rings, narrow UES, and GERD. He is scheduled for a follow- up EGD at [facility] in November, where they will discuss possible treatments for Shotzke's ring. The pt described frequent sensations of food sticking in his throat, which he then coughs up and re-swallows, usually successfully. MBSS revealed a mild-moderate pharyngeal secondary to reduced swallow trigger, weakness of medial pharyngeal constrictors and apparent absence of inferior constriction, and reduced extension and duration of UES opening. This resulted in escape of bolus as far as pyriform sinuses prior to swallow onset and moderate pharyngeal residue. Subjective Observations The pt arrived on time and provided case history to support medical records. He reported a frequent occurrence of humming while eating and questioned if that was normal or problematic. When asked about his childhood experiences of swallowing, he informed that, d/t medical problems as a child, he often had to take medication in pills, which he strongly disliked. Additionally, he often became sick and vomited after eating, which has resulted in him not being food driven as an adult. He stated his brought his awareness to this behavior, which he is able to discontinue volitionally. Findings Dysphagia Type Mild-Moderate Pharyngeal Dysphagia Rehabilitation Potential Good Impressions The pt presents with mild- moderate pharyngeal dysphagia, as indicated by MBSS. Review of MBSS video was made with the pt with subsequent education. The pt's questions were addressed. Suspect humming with oral intake is a long-standing habitual behavior for the pt, likely stemming from negative childhood experiences with oral intake and swallowing. Humming may have been a response to anticipation of negative experiences or served as a distraction. Given the pt's ability to volitionally discontinue humming when aware of its presence, it is anticipated that, with practice, the pt should be able to undo this habit. No evidence of physiologic disorder was observed that would otherwise account for the behavior. The pt was further educated RE exercises to improve laryngopharyngeal muscular function to improve swallow ability. Specifically exercises were targeted to increase hyolaryngeal elevation/excursion to improve airway closure and assist in greater extension and duration of UES opening, as well as increase pharyngeal constriction in order to reduce pharyngeal residue. Instructions were provided orally with demonstration and in writing. The pt returned demonstration of exercises and verbalized understanding. The pt was recommended to eat slowly, consuming small bites and sips and to chew well in order to present bolus sizes that were able to be accepted by the UES in single swallows. The pt was also recommended to discuss extention and duration of UES opening with GI MD at next EGD appt in Nov. If GI offered additional treatment to improve function, the pt was encouraged to follow those recommendations. Diet Recommendations Liquids Order Thin Diet Order Regular Medication Recommendations As Tolerated Aspiration Precautions Recommended Precautions Upright at 90 Degrees,Small Bites/Sips,Effortful Swallow Treatment Plan Placement Recommendations after Home,Outpatient Therapy Discharge Appropriate for Therapy Yes Therapy Recommendations Education and training in safe swallow strategies and exercises to increase efficiency of swallow function and improve safety and comfort with oral intake. Dysphagia Goals 1. The pt will follow safe swallow strategies independently to reduce pharyngeal residue, discomfort with oral intake, and risk of aspiration. 2. The pt will perform exercises to increase strength , coordination, and ROM of swallow musculature to improve swallow function and reduce risk of aspiration. 3. The pt will tolerate all desired diet textures and thin liquids without s/sx of aspiration and without need to regurgitate solids in order to swallow effectively, as measured by pt report and clinician judgment.
--- NOTE | 2019-11-11 09:22 | ST.IPDYTX ---
Visit Care Team Role Provider Type Trinidad Gutierrez MD Attending Provider Non-Staff Primary Care Provider Referring Provider Specialty: Family Practice Address: [address] [place] [address], [id number] Email: FLIGHT TEST ENGINEER Dysphagia Treatment FLIGHT TEST ENGINEER Dysphagia Treatment Start: 10/29/19 14:17 Freq: Status: Active Protocol: Document 11/11/19 09:02 DANIELE (Rec: 11/11/19 09:20 DANIELE [email or web address]) Dysphagia Treatment Session Time Visit Start Time 08:30 Visit Stop Time 09:00 Total Visit Minutes 30 Visit Information Visit Number 1 Plan of Care Dates 10/29/19 - 01/25/20 Insurance Information Setting Assessment Location Outpatient Care Visit Type Note Type Treatment Note Next Note Type Next Note Type Treatment Note Patient Information Identification Type Name,ID Card Subjective Observations Pt arrived on time. He completed food allergy testing which revealed allergy to potatoes. He has endoscopy scheduled for 2 wks from now. Due to travel and COVID-19 precautions, the pt must quarantine for 2 wks after that procedure, which will prevent him from attending treatment sessions until after. Agreed to follow up after the pt has completed travel and quarantine. Treatment Treatment Activities Education provided RE potential effects of inflamation, EOE, GERD and Shotke's ring on swallow function. Trained pt in additional pharyngeal/ laryngeal exercises including Phu, jaw opening/ yawning, lingual strengthening against resistance, and effortful swallow. Pt returned demonstration of all exercises, demonstrating understanding and ability to perform. Discussed POC, frequency and duration, and all questions were answered. Assessment Patient Response to Treatment Good Rehab Potential Good Assessment of Improvement The pt is very receptive to educatio and training. Demonstrated good insight into deficits and possible contribution from comorbidities. He's been compliant with HEP and demonstrates motivation to continue program to improve swallow function and safety. Diet Recommendations Recommendations Continue Current Diet Liquids Order Thin Diet Order Regular Medication Recommendations As Tolerated Aspiration Precautions Recommended Precautions Upright at 90 Degrees, Alternate Liquids/Solids,Small Bites/Sips Additional Precautions Chew well, eat slowly Treatment Plan Placement Recommendation after Discharge Home,Outpatient Therapy Appropriate for Continued Therapy Yes Therapy Recommendations Education and training in safe swallow strategies and exercises to increase efficiency of swallow function and improve safety and comfort with oral intake. Dysphagia Goals 1. The pt will follow safe swallow strategies independently to reduce pharyngeal residue, discomfort with oral intake, and risk of aspiration. 2. The pt will perform exercises to increase strength , coordination, and ROM of swallow musculature to improve swallow function and reduce risk of aspiration. 3. The pt will tolerate all desired diet textures and thin liquids without s/sx of aspiration and without need to regurgitate solids in order to swallow effectively, as measured by pt report and clinician judgment. Follow Up Plan In 4 wks after pt has completed travel and quarantine
== END 2020-01-26 13:15 ==
LOC: SP 12:30
DX: K20.0 Eosinophilic esophagitis (principal)
CPT/HCPCS: 92526; 92610

== ENCOUNTER → 2020-01-26 09:03 | Outpatient (CLI) | payer OTHER, SELFPAY ==
--- NOTE | 2020-01-26 09:05 | DI.RAD.S_ITS ---
PROCEDURE: XR RIBS BI MIN 4V W CXR1V INDICATIONS: rib pain s/p nephrectomy TECHNIQUE: 2 views of the right ribs were acquired, along with a single view chest. COMPARISON: None. FINDINGS: Surgical changes and devices: None. Bones and chest wall: No fractures or dislocations. No suspicious bony lesions. Overlying soft tissues appear unremarkable. Lungs and pleura: No pleural effusions or pneumothorax. Lungs appear clear. Mediastinum: Mediastinal contours appear normal. Heart size is normal. IMPRESSION: 1. No acute abnormality of the right ribs. 2. Normal chest x-ray. Dictated by: Robby Boone M.D. on 01/26/2020 at 9:56 Approved by: Robby Boone M.D. on 01/26/2020 at 9:58
== END ==
PROVIDERS: Visit Provider Physical Medicine & Rehabilitation
DX: M54.14 Radiculopathy, thoracic region (principal); R07.81 Pleurodynia; M99.08 Segmental and somatic dysfunction of rib cage; Z90.5 Acquired absence of kidney
CPT/HCPCS: 71111

== ENCOUNTER → 2020-01-30 08:59 | Outpatient (CLI) | payer OTHER, SELFPAY ==
--- NOTE | 2020-01-30 | DI.MRI.S_ITS ---
PROCEDURE: MR THORACIC SPINE WO CON INDICATIONS: Radiculopathy, thoracic region TECHNIQUE: Noncontrast sagittal T1 spine echo and T2 fast spin echo, sagittal STIR, axial T1 and T2 fast spin echo through the thoracic spine. COMPARISON: None. FINDINGS: Image quality: Excellent. Alignment and Curvature: There is normal bony alignment. Bone Marrow: Marrow is of normal overall signal. No acute vertebral body compression fractures. Spinal Cord: Visualized spinal cord is normal in size and signal. Regional Soft Tissues: No paravertebral masses. Miscellaneous: On axial images, central canal and foramina appear widely patent at all scanned levels. IMPRESSION: Normal thoracic spine MRI. No finding to explain back pain. Dictated by: Omar Payne M.D. on 01/30/2020 at 10:35 Approved by: Omar Payne M.D. on 01/30/2020 at 10:37
== END ==
PROVIDERS: Referring Provider Physical Medicine & Rehabilitation; Visit Provider Physical Medicine & Rehabilitation
DX: M54.14 Radiculopathy, thoracic region (principal); M99.08 Segmental and somatic dysfunction of rib cage; Z90.5 Acquired absence of kidney
CPT/HCPCS: 72146

== ENCOUNTER → 2020-03-23 10:56 | Outpatient (ROUT) | payer OTHER, SELFPAY ==
[2020-03-23 11:27] LABS: COVID19 -Nasal RAPID Negative (Negative)
== END ==
PROVIDERS: Visit Provider Physical Medicine & Rehabilitation
DX: Z01.812 Encounter for preprocedural laboratory examination (principal); Z20.828 Contact with and (suspected) exposure to other viral communicable diseases
CPT/HCPCS: 87635; C9803

== ENCOUNTER 2020-03-25 08:14 | Outpatient (CLI) | payer OTHER, SELFPAY ==
[2020-03-25] VITALS (8 sets, daily range): BP systolic 120–141; BP diastolic 68–86; PULSE 83–115; RESP 12–20; TEMP 36.1; O2SAT 96–100
--- NOTE | 2020-03-25 08:15 | DI.RAD.S_ITS ---
PROCEDURE: PAIN C/T TRANFORAMINAL INJECT INDICATIONS: SPONDYLOSIS COMPARISON: [facility], MR, MR THORACIC SPINE WO CON, 01/30/2020, 9:49. [facility], CR, XR RIBS BI MIN 4V W CXR1V, 01/26/2020, 8:57. [facility], XA, PAIN L/SI FACET INJ/BLK 1STL, 11/20/2019, 12:52. FINDINGS: Fluoroscopic spot filming was performed to verify placement of spinal needles at the T12-L1 level(s), as labeled on the films. Appropriate location(s) of the needle tip(s) was confirmed by injection of iodinated contrast. IMPRESSION: Fluoroscopy for pain management. Dictated by: Shayna Bowman M.D. on 03/25/2020 at 10:35 Approved by: Shayna Bowman M.D. on 03/25/2020 at 10:36
[2020-03-25] MEDS: fentaNYL 100 MCG/2 ML INJ 50 MCG IV (09:07)
[2020-03-25] MEDS: IOPAMIDOL 15 ML VIAL 3 ML INJ (09:12)
[2020-03-25] MEDS: DEXAMETHASONE 10 MG/ML VIAL 20 MG INJ (09:12)
[2020-03-25] MEDS: BUPIVACAINE 0.25% (PF) VIAL 2 ML INJ (09:12)
[2020-03-25] MEDS: MIDAZOLAM 5 MG/5 ML VIAL IV (09:13)
[2020-03-25] MEDS: DEXAMETHASONE 10 MG/ML VIAL INJ (09:17)
--- NOTE | 2020-03-25 09:25 | P.PCN_ITS ---
Date/Time/Diagnoses Date of procedure: 03/25/20 Time of procedure: 09:25 Pre-procedure diagnosis: 1. FORAMINAL STENOSIS WITH LE SYMPTOMS Post-procedure diagnosis: same Procedure Notes Procedure: 1. FLUOROSCOPICALLY GUIDED CONTRAST CONTROLLED TRANSFORAMINAL EPIDURAL STEROID INJECTION - RIGHT T12/L1 TFESI Indications: Shan is referred by Dr. Gutierrez for treatment of Foraminal Stenosis with Right thoracic Symptoms Physician: Kiko Montiel Total Fluoroscopy time (seconds): 10 Total sedation minutes: 14 Complications: none Procedure in detail & Post-procedure care: FINDINGS Foraminal Nerve Root Compression secondary to disc disease and facet hypertrophy DESCRIPTION OF PROCEDURE Following review of allergy and review of potential side effects and complications, including, but not necessarily limited to, infection, allergic reaction, local tissue breakdown, stroke, temporary or permanent nerve injury, paralysis, and possible , the patient indicated that the patient understood and agreed to proceed. An informed consent document was signed by the patient, witnessed by a nurse, and placed in the patient's chart. Additionally, other treatment options including medications, modalities, and physical therapy were reviewed with the patient. After review of previous anaesthesic history and IV conscious sedation the patient was deemed safe to proceed with today?s procedure with IV conscious sedation as ASA class II designation. Safety time-out was performed to confirm patient ID, procedure to be performed and site of procedure. IV sedation was accomplished with a combination of 3mg of Versed and 50mcg of Fentanyl was administered by the RN after DO order, titrated to patient comfort during the course of the procedure while the patient remained responsive to all verbal commands In the prone position following sterile prep and drape of the lumbar region, the right T12/L1 posterior neuroforamen was identified fluoroscopically. The skin was anesthetized via a 25-gauge 1.5-inch needle with 1% lidocaine solution. At this point, a 25-gauge 3.5-inch spinal needle was atraumatically introduced and advanced under fluoroscopic guidance through the posterior right T12/L1 neuroforamen to approximately the anterior aspect of the canal. Depth was confirmed on lateral view. Following negative aspiration, injection of approximately 1.5cc of Isovue 200 under live fluoroscopy in the AP view confirmed excellent flow along the nerve root, into the epidural space without vascular or intrathecal uptake observed Radiological data, including multiple fluoroscopic views reveal the needle placement in the right T12/L1 posterior neuroforamen. Subsequent views show flow of contrast material flowing superiorly and inferiorly along the nerve root confirming epidural flow. Subsequently, a test dose of 1.5cc of 1% lidocaine solution was administered and patient was observed for signs or symptoms of complications, including abdominal pain, shortness of breath, bilateral upper or lower extremity weakness, nausea and vomiting, prior to steroid injection. At this point, a total of 3cc or 30mg of dexamethasone was injected without incident. The procedure tolerated the procedure well without signs or symptoms of complications prior to transfer to the recovery area continued monitoring without incident. The patient was then transferred to the recovery area where they were observed for an appropriate time after the injection. The patient reported a VAS score of 5 prior to the procedure and a post- procedure VAS of 0. POST OP INSTRUCTIONS The patient was provided a Pain Log to continue to record their response to the target-specific procedure prior to follow-up visit with their referring physician. Additionally, specific post-injection care instructions and a contact number to our office were provided if concerns arise regarding possible complications associated with the procedure are suspected.
== END 2020-03-25 09:45 | disposition home or self-care (01) ==
LOC: RAD 08:15
PROVIDERS: Referring Provider Physical Medicine & Rehabilitation; Visit Provider Physical Medicine & Rehabilitation
DX: M48.05 Spinal stenosis, thoracolumbar region (principal); M51.15 Intervertebral disc disorders with radiculopathy, thoracolumbar region
CPT/HCPCS: 64479; 99152; J0702; J1100; J2250; J3010